=== PATIENT | female | born 1980 | race Caucasian/White ===

== ENCOUNTER 2017-05-28 09:27 | Emergency (ER) | payer SELFPAY ==
[2017-05-28] MEDS ORDERED: Ondansetron 4 MG/2 ML SDV IVPUSH ONE (09:36)
--- NOTE | 2017-05-28 09:37 | EDM.PDOC ---
<Sienna Fields - Last Filed: 05/28/17 14:04> ED HPI GENERAL MEDICAL PROBLEM - General Chief Complaint: Neuro Symptoms/Deficits Stated Complaint: RAPID RESPONSE FROM CLINIC Time Seen by Provider: 05/28/17 09:32 - Related Data Allergies Allergy/AdvReac Type Severity Reaction Status Date / Time No Known Allergies Allergy Verified 05/28/17 09:48 Home Meds: Home Meds Rizatriptan Benzoate [Maxalt] 5 mg PO ASDIRECTED PRN #20 tablet 05/28/17 [Rx] Course - Vital Signs Last Recorded V/S: Last Vital Signs Temp 36.3 C 05/28/17 09:36 Pulse 82 05/28/17 09:36 Resp 16 05/28/17 09:36 BP 143/78 H 05/28/17 09:36 Pulse Ox 97 05/28/17 09:36 - Orders/Labs/Meds Orders: Active Orders 24 hr Category Date Time Status Blood Glucose Check, Bedside [RC] ONETIME Care 05/28/17 09:37 Active EKG Documentation Completion [RC] STAT Care 05/28/17 09:34 Active CALCIUM, IONIZED [REF] Stat Lab 05/28/17 09:35 Ordered Dextrose 5%-0.9% NaCl [Dextrose 5%-Normal Saline] 1,000 Med 05/28/17 09:45 Active ml IV ASDIRECTED Medication Orders Dextrose/Sodium Chloride (Dextrose 5%-Normal Saline) 1,000 mls @ 150 mls/hr IV ASDIRECTED TANK Last Admin: 05/28/17 09:59 Dose: 150 mls/hr Labs: Laboratory Tests 05/28/17 05/28/17 05/28/17 Range/Units 09:40 09:41 10:38 WBC 6.01 (3.98-10.04) K/mm3 RBC 4.29 (3.98-5.22) M/mm3 Hgb 13.5 (11.2-15.7) gm/L Hct 39.0 (34.1-44.9) % MCV 90.9 (79.4-94.8) fl MCH 31.5 (25.6-32.2) pg MCHC 34.6 (32.2-35.5) g/dl RDW Std Deviation 40.9 (36.4-46.3) fL Plt Count 253 (182-369) K/mm3 MPV 10.3 (9.4-12.3) fl Neutrophils % (Manual) 49 (40-60) % Band Neutrophils % 1 (0-10) % Lymphocytes % (Manual) 36 (20-40) % Atypical Lymphs % 0 % Monocytes % (Manual) 9 (2-10) % Eosinophils % (Manual) 5 (0.7-5.8) % Basophils % (Manual) 0 L (0.1-1.2) Platelet Estimate Adequate RBC Morph Comment Normal PT 10.1 (8.0-13.0) SECONDS INR 0.93 Sodium (136-145) mEq/L Potassium (3.5-5.1) mEq/L Chloride (98-107) mEq/L Carbon Dioxide (21-32) mEq/L Anion Gap (5-15) BUN (7-18) mg/dL Creatinine (0.55-1.02) mg/dL Est Cr Clr Drug Dosing Estimated GFR (MDRD) (>60) mL/min BUN/Creatinine Ratio (14-18) Glucose (74-106) mg/dL POC Glucose 190 H (70-105) mg/dL Hemoglobin A1c (4.50-6.20) % Calcium (8.5-10.1) mg/dL Total Bilirubin (0.2-1.0) mg/dL AST (15-37) U/L ALT (14-59) U/L Alkaline Phosphatase (46-116) U/L C-Reactive Protein (<1.0) mg/dL Total Protein (6.4-8.2) g/dl Albumin (3.4-5.0) g/dl Globulin gm/dL Albumin/Globulin Ratio (1-2) Urine Color (Yellow) Urine Appearance (Clear) Urine pH (5.0-8.0) Ur Specific [place] (1.005-1.030) Urine Protein (Negative) Urine Glucose (UA) (Negative) Urine Ketones (Negative) Urine Occult Blood (Negative) Urine Nitrite (Negative) Urine Bilirubin (Negative) Urine Urobilinogen (0.2-1.0) Ur Leukocyte Esterase (Negative) Urine RBC (0-5) /hpf Urine WBC (0-5) /hpf Ur Epithelial Cells (0-5) /hpf Urine Bacteria (FEW) /hpf Urine Mucus (FEW) /hpf Urine Opiates Screen (NEGATIVE) Ur Buprenorphine Scrn (NEGATIVE) Ur Oxycodone Screen (NEGATIVE) Urine Methadone Screen (NEGATIVE) Ur Propoxyphene Screen (NEGATIVE) Ur Barbiturates Screen (NEGATIVE) Ur Tricyclics Screen (NEGATIVE) Ur Phencyclidine Scrn (NEGATIVE) Ur Amphetamine Screen (NEGATIVE) U Methamphetamines Scrn (NEGATIVE) U Benzodiazepines Scrn (NEGATIVE) U Cocaine Metab Screen (NEGATIVE) U Marijuana (THC) Screen (NEGATIVE) Ethyl Alcohol (0.00) gm% 05/28/17 05/28/17 05/28/17 Range/Units 10:38 10:38 12:48 WBC (3.98-10.04) K/mm3 RBC (3.98-5.22) M/mm3 Hgb (11.2-15.7) gm/L Hct (34.1-44.9) % MCV (79.4-94.8) fl MCH (25.6-32.2) pg MCHC (32.2-35.5) g/dl RDW Std Deviation (36.4-46.3) fL Plt Count (182-369) K/mm3 MPV (9.4-12.3) fl Neutrophils % (Manual) (40-60) % Band Neutrophils % (0-10) % Lymphocytes % (Manual) (20-40) % Atypical Lymphs % % Monocytes % (Manual) (2-10) % Eosinophils % (Manual) (0.7-5.8) % Basophils % (Manual) (0.1-1.2) Platelet Estimate RBC Morph Comment PT (8.0-13.0) SECONDS INR Sodium 139 (136-145) mEq/L Potassium 3.7 (3.5-5.1) mEq/L Chloride 106 (98-107) mEq/L Carbon Dioxide 25 (21-32) mEq/L Anion Gap 11.7 (5-15) BUN 9 (7-18) mg/dL Creatinine 0.8 (0.55-1.02) mg/dL Est Cr Clr Drug Dosing TNP Estimated GFR (MDRD) > 60 (>60) mL/min BUN/Creatinine Ratio 11.3 L (14-18) Glucose 216 H (74-106) mg/dL POC Glucose (70-105) mg/dL Hemoglobin A1c 7.60 H (4.50-6.20) % Calcium 8.9 (8.5-10.1) mg/dL Total Bilirubin 0.9 (0.2-1.0) mg/dL AST 64 H (15-37) U/L ALT 99 H (14-59) U/L Alkaline Phosphatase 91 (46-116) U/L C-Reactive Protein 0.7 (<1.0) mg/dL Total Protein 7.0 (6.4-8.2) g/dl Albumin 3.7 (3.4-5.0) g/dl Globulin 3.3 gm/dL Albumin/Globulin Ratio 1.1 (1-2) Urine Color Yellow (Yellow) Urine Appearance Clear (Clear) Urine pH 5.5 (5.0-8.0) Ur Specific [place] 1.015 (1.005-1.030) Urine Protein Negative (Negative) Urine Glucose (UA) Negative (Negative) Urine Ketones Negative (Negative) Urine Occult Blood Negative (Negative) Urine Nitrite Negative (Negative) Urine Bilirubin Negative (Negative) Urine Urobilinogen 0.2 (0.2-1.0) Ur Leukocyte Esterase Negative (Negative) Urine RBC Not seen (0-5) /hpf Urine WBC 0-5 (0-5) /hpf Ur Epithelial Cells 0-5 (0-5) /hpf Urine Bacteria Not seen (FEW) /hpf Urine Mucus Not seen (FEW) /hpf Urine Opiates Screen (NEGATIVE) Ur Buprenorphine Scrn (NEGATIVE) Ur Oxycodone Screen (NEGATIVE) Urine Methadone Screen (NEGATIVE) Ur Propoxyphene Screen (NEGATIVE) Ur Barbiturates Screen (NEGATIVE) Ur Tricyclics Screen (NEGATIVE) Ur Phencyclidine Scrn (NEGATIVE) Ur Amphetamine Screen (NEGATIVE) U Methamphetamines Scrn (NEGATIVE) U Benzodiazepines Scrn (NEGATIVE) U Cocaine Metab Screen (NEGATIVE) U Marijuana (THC) Screen (NEGATIVE) Ethyl Alcohol 0.00 (0.00) gm% 05/28/17 Range/Units 12:48 WBC (3.98-10.04) K/mm3 RBC (3.98-5.22) M/mm3 Hgb (11.2-15.7) gm/L Hct (34.1-44.9) % MCV (79.4-94.8) fl MCH (25.6-32.2) pg MCHC (32.2-35.5) g/dl RDW Std Deviation (36.4-46.3) fL Plt Count (182-369) K/mm3 MPV (9.4-12.3) fl Neutrophils % (Manual) (40-60) % Band Neutrophils % (0-10) % Lymphocytes % (Manual) (20-40) % Atypical Lymphs % % Monocytes % (Manual) (2-10) % Eosinophils % (Manual) (0.7-5.8) % Basophils % (Manual) (0.1-1.2) Platelet Estimate RBC Morph Comment PT (8.0-13.0) SECONDS INR Sodium (136-145) mEq/L Potassium (3.5-5.1) mEq/L Chloride (98-107) mEq/L Carbon Dioxide (21-32) mEq/L Anion Gap (5-15) BUN (7-18) mg/dL Creatinine (0.55-1.02) mg/dL Est Cr Clr Drug Dosing Estimated GFR (MDRD) (>60) mL/min BUN/Creatinine Ratio (14-18) Glucose (74-106) mg/dL POC Glucose (70-105) mg/dL Hemoglobin A1c (4.50-6.20) % Calcium (8.5-10.1) mg/dL Total Bilirubin (0.2-1.0) mg/dL AST (15-37) U/L ALT (14-59) U/L Alkaline Phosphatase (46-116) U/L C-Reactive Protein (<1.0) mg/dL Total Protein (6.4-8.2) g/dl Albumin (3.4-5.0) g/dl Globulin gm/dL Albumin/Globulin Ratio (1-2) Urine Color (Yellow) Urine Appearance (Clear) Urine pH (5.0-8.0) Ur Specific [place] (1.005-1.030) Urine Protein (Negative) Urine Glucose (UA) (Negative) Urine Ketones (Negative) Urine Occult Blood (Negative) Urine Nitrite (Negative) Urine Bilirubin (Negative) Urine Urobilinogen (0.2-1.0) Ur Leukocyte Esterase (Negative) Urine RBC (0-5) /hpf Urine WBC (0-5) /hpf Ur Epithelial Cells (0-5) /hpf Urine Bacteria (FEW) /hpf Urine Mucus (FEW) /hpf Urine Opiates Screen Negative (NEGATIVE) Ur Buprenorphine Scrn Negative (NEGATIVE) Ur Oxycodone Screen Negative (NEGATIVE) Urine Methadone Screen Negative (NEGATIVE) Ur Propoxyphene Screen Negative (NEGATIVE) Ur Barbiturates Screen Negative (NEGATIVE) Ur Tricyclics Screen Negative (NEGATIVE) Ur Phencyclidine Scrn Negative (NEGATIVE) Ur Amphetamine Screen Negative (NEGATIVE) U Methamphetamines Scrn Negative (NEGATIVE) U Benzodiazepines Scrn Negative (NEGATIVE) U Cocaine Metab Screen Negative (NEGATIVE) U Marijuana (THC) Screen Negative (NEGATIVE) Ethyl Alcohol (0.00) gm% Meds: Medications Generic Name Dose Route Start Last Admin Trade Name Freq PRN Reason Stop Dose Admin Dextrose/Sodium Chloride 1,000 mls @ 150 mls/hr 05/28/17 09:45 05/28/17 09:59 Dextrose 5%-Normal Saline IV 150 mls/hr ASDIRECTED TANK Administration Discontinued Medications Generic Name Dose Route Start Last Admin Trade Name Freq PRN Reason Stop Dose Admin Haloperidol Lactate 2.5 mg 05/28/17 11:48 05/28/17 12:06 Haldol IVPUSH 05/28/17 11:49 Not Given ONETIME ONE Haloperidol Lactate 5 mg 05/28/17 12:07 05/28/17 12:16 Haldol IM 05/28/17 12:08 5 mg ONETIME ONE Administration Ketorolac Tromethamine 30 mg 05/28/17 11:48 05/28/17 12:04 Toradol IVPUSH 05/28/17 11:49 30 mg ONETIME ONE Administration Ondansetron HCl 4 mg 05/28/17 09:36 05/28/17 09:59 Zofran IVPUSH 05/28/17 09:37 4 mg ONETIME ONE Administration - Re-Assessments/Exams Free Text/Narrative Re-Assessment/Exam: 05/28/17 11:[address] Hughes with this patient. We've reviewed the CT and labs that are available less far. Patient is now seen one-word answers but will write out longer sentences. Reportedly the patient developed dizziness and said that "her hands are sleeping " 15 days ago. 11 days ago she then developed a headache and numbness to the entire left side of her body. She has not taken anything for the headache. Her friends and family an appointment for her to see the provider today. Reports that she was very nervous about this and anxious. She asked to have this appointment canceled. When she arrives to the clinic she then developed an inability to speak. A rapid response was then called and she was sent over to us for further care. She denies any drug or alcohol use. She states that she has no history of this. Reports that she is a pre-diabetic. This history was obtained from the patient's friend as the patient speaks primarily Surin[place]e. She denies any chest pain, abdominal pain or shortness of breath. Review the patient's chart shows that in April 2015 she was seen in the ER with complaints of a burning sensation in her head and numbness from her head down to the toes on the left side of her body. During that visit ,a CT of her head was done. She was sent to [place] for further management care. The patient was then seen again on June 28, 2015. She was seen in the ER with again similar symptoms. Prior to this presentation she had fallen. Review of that record shows that when she arrived in [place] her symptoms had resolved during her April visit therefore she was sent home that day. During her June 28 visit she was admitted to the hospital. MRI of the brain and MRA were performed. No abnormalities were identified. The patient cannot or will not raise her eyebrows, she will speak in one-word at a time but not in sentences. 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 Dorsiflexion is 5 out of 5 bilaterally. Plantar flexion is 4 out of 5 bilaterally. Patient has no pronator drift. [id number] testing the patient takes her time with but is able to complete. She reports no sensation to the left side of her face, left arm and left leg. This case has been discussed with Dr. Hughes as he initiated the workup for this patient. We both feel that she is having either atypical migraines or possibly a psychiatric illness such as malingering or conversion disorder. At this time we both feel that a CVA is unlikely especially given that she has had similar presentations in the past with negative workups. 05/28/17 13:04 CT of the head without contrast impression per Dr. Ramirez: Impression: 1. Incidental findings. No acute intracranial abnormality is identified on noncontrast head CT study. 05/28/17 14:04 At this point patient is feeling greatly improved. The numbness to the left side of her body has nearly resolved. Her headache has resolved. The nausea has resolved. She feels comfortable going home. This case has been discussed with Dr. Hughes feel we feel this is likely atypical migraine. Asked about medication for migraines. We will try her on some Maxalt have her follow next week with her primary care provider. Departure - Departure Time of Disposition: 14:04 Disposition: Home, Self-Care 01 Condition: Good Clinical Impression: Atypical migraine - Discharge Information Prescriptions: Rizatriptan Benzoate [Maxalt] 5 mg PO ASDIRECTED PRN #20 tablet PRN Reason: Headache Instructions: Migraine Headache Referrals: PCP,None [Primary Care Provider] - Lety Myers PA-C [Physician Goldsmith Apprentice] - Forms: ED Department Discharge Additional Instructions: Go home and rest in a dark quiet room. Make sure you're drinking plenty of fluids. may take the Maxalt 1 tab by mouth at onset of headache. may repeat this every 2 hours, 2 times if needed for additional migraine headache relief. Follow-up with your primary care provider next week for recheck of your symptoms. Please return to the ER if your symptoms change or worsen. - My Orders Last 24 Hours: My Active Orders 05/28/17 09:34 EKG Documentation Completion [RC] STAT 05/28/17 09:35 CALCIUM, IONIZED [REF] Stat 05/28/17 09:37 Blood Glucose Check, Bedside [RC] ONETIME 05/28/17 09:45 Dextrose 5%-0.9% NaCl [Dextrose 5%-Normal Saline] 1,000 ml IV ASDIRECTED - Assessment/Plan Last 24 Hours: My Active Orders 05/28/17 09:34 EKG Documentation Completion [RC] STAT 05/28/17 09:35 CALCIUM, IONIZED [REF] Stat 05/28/17 09:37 Blood Glucose Check, Bedside [RC] ONETIME 05/28/17 09:45 Dextrose 5%-0.9% NaCl [Dextrose 5%-Normal Saline] 1,000 ml IV ASDIRECTED <Ricci Hughes - Last Filed: 05/28/17 15:08> ED HPI GENERAL MEDICAL PROBLEM - General Source of Information: Reports: Patient, Family, Olive Grader History Limitations: Reports: Language Barrier (speaks only [place]inamese) - History of Present Illness INITIAL COMMENTS - FREE TEXT/NARRATIVE: 37-year-old female arrives in the ED after rapid response was called on third floor beside the hospital. Apparently she passed out well in the seated position. She had presented to the clinic due to a severe headache for the last week. It's unclear what there is been any associated nausea and vomiting but it does not sound so. Mohamed she's been able to eat or drink recently.She is not speaking at present and even through alteration worker not able to get her to answer any questions. She will make eye contact. She is alert and I suspicious that she is malingering or very scared. Vital signs are all normal. Neuro exam is grossly normal. She speaks only [place]in[place]e and therefore alteration worker present also using interpreters through cell phone service and patient won't answer any questions . Uncertain if she takes any medications or if she has any allergies at this time. Onset: Today ( Apparently went unresponsive while in the clinic third floor today. Rapid response was called and the patient was brought to the ED. She is of [place]inamese speaking only. Therefore no history could be gleaned from the patient and she refuses or can't answer questions through alteration worker as well today.) Onset Date: 05/28/17 Onset Time: 09:24 Duration: Minutes: Location: Reports: Generalized ( presents supposedly a phasic with implants of left upper extremity weakness numbness and tingling. 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/BYN History: Social & Family History - Tobacco Use Smoking Status *Q: Never Smoker Second Hand Smoke Exposure: No - Recreational Drug Use Recreational Drug Use: No - Living Situation & Occupation Living situation: Reports: Occupation: Unemployed ED ROS GENERAL - Review of Systems Review Of Systems: Unable To Obtain (unable to obtain initially as the patient was nonverbal and apparently only speaks [place]in[place]e.) ED EXAM, NEURO - Physical Exam Exam: See Below Exam Limited By: Other (Language barrier she speaks apparently only [place]e and she will not answer questions even with the alteration worker via computer.) General Appearance: Alert, Anxious Eye Exam: Bilateral Eye: Normal Fundi, Normal Inspection, PERRL Ears: Normal TMs ( No gaze palsy.) Nose: Other Throat/Mouth: Other ( Tongue is dry and coated). No: Normal Lips ( tongue is dry and coated lips are chapped.) Head Exam: Atraumatic, Normocephalic Neck: Normal Inspection, Supple, Non-Tender. No: Carotid Bruit, Lymphadenopathy (L), Lymphadenopathy (R) Respiratory/Chest: No Respiratory Distress, Lungs Clear, Normal Breath Sounds, No Accessory Muscle Use, Chest Non-Tender Cardiovascular: Normal Peripheral Pulses, Regular Rate, Rhythm, No Edema, No Gallop, No Murmur GI/Abdominal: Normal Bowel Sounds, Soft, Non-Tender, No Organomegaly, No Abnormal Bruit, No Mass Neurological: Alert ( She seems to make eye contact but she is nonverbal. Cannot establish or answer any other questions.). No: Babinski ( Not able to perform any neurological tests at this time.) DTR: 1+: Achilles (R), Achilles (L), 2+: Bicep (R), Bicep (L), 3+: Patella (R), Patella (L) Back Exam: Normal Inspection, Full Range of Motion Extremities: Normal Inspection, Normal Range of Motion, Non-Tender, No Pedal Edema, Other ( I could not detect any change in her power and tone in either extremity motor power and tone were normal on assessment in all of her limbs.) Psychiatric: Anxious Skin Exam: Warm, Dry, Intact, Normal Color, No Rash EKG INTERPRETATION EKG Date: 05/28/17 Time: 09:45 Rhythm: NSR Rate (Beats/Min): 78 [place]: Normal P-Wave: Present QRS: Normal ST-T: Normal EKG Interpretation Comments: normal ECG Course - Vital Signs Last Recorded V/S: Last Vital Signs Temp 36.3 C 05/28/17 09:36 Pulse 82 05/28/17 09:36 Resp 16 05/28/17 09:36 BP 143/78 H 05/28/17 09:36 Pulse Ox 97 05/28/17 09:36 - Orders/Labs/Meds Orders: Active Orders 24 hr Category Date Time Status Blood Glucose Check, Bedside [RC] ONETIME Care 05/28/17 09:37 Active EKG Documentation Completion [RC] STAT Care 05/28/17 09:34 Active CALCIUM, IONIZED [REF] Stat Lab 05/28/17 09:35 Ordered Dextrose 5%-0.9% NaCl [Dextrose 5%-Normal Saline] 1,000 Med 05/28/17 09:45 Active ml IV ASDIRECTED Medication Orders Dextrose/Sodium Chloride (Dextrose 5%-Normal Saline) 1,000 mls @ 150 mls/hr IV ASDIRECTED TANK Last Admin: 05/28/17 09:59 Dose: 150 mls/hr Labs: Laboratory Tests 05/28/17 05/28/17 05/28/17 Range/Units 09:40 09:41 10:38 WBC 6.01 (3.98-10.04) K/mm3 RBC 4.29 (3.98-5.22) M/mm3 Hgb 13.5 (11.2-15.7) gm/L Hct 39.0 (34.1-44.9) % MCV 90.9 (79.4-94.8) fl MCH 31.5 (25.6-32.2) pg MCHC 34.6 (32.2-35.5) g/dl RDW Std Deviation 40.9 (36.4-46.3) fL Plt Count 253 (182-369) K/mm3 MPV 10.3 (9.4-12.3) fl Neutrophils % (Manual) 49 (40-60) % Band Neutrophils % 1 (0-10) % Lymphocytes % (Manual) 36 (20-40) % Atypical Lymphs % 0 % Monocytes % (Manual) 9 (2-10) % Eosinophils % (Manual) 5 (0.7-5.8) % Basophils % (Manual) 0 L (0.1-1.2) Platelet Estimate Adequate RBC Morph Comment Normal PT 10.1 (8.0-13.0) SECONDS INR 0.93 Sodium (136-145) mEq/L Potassium (3.5-5.1) mEq/L Chloride (98-107) mEq/L Carbon Dioxide (21-32) mEq/L Anion Gap (5-15) BUN (7-18) mg/dL Creatinine (0.55-1.02) mg/dL Est Cr Clr Drug Dosing Estimated GFR (MDRD) (>60) mL/min BUN/Creatinine Ratio (14-18) Glucose (74-106) mg/dL POC Glucose 190 H (70-105) mg/dL Hemoglobin A1c (4.50-6.20) % Calcium (8.5-10.1) mg/dL Total Bilirubin (0.2-1.0) mg/dL AST (15-37) U/L ALT (14-59) U/L Alkaline Phosphatase (46-116) U/L C-Reactive Protein (<1.0) mg/dL Total Protein (6.4-8.2) g/dl Albumin (3.4-5.0) g/dl Globulin gm/dL Albumin/Globulin Ratio (1-2) Urine Color (Yellow) Urine Appearance (Clear) Urine pH (5.0-8.0) Ur Specific [place] (1.005-1.030) Urine Protein (Negative) Urine Glucose (UA) (Negative) Urine Ketones (Negative) Urine Occult Blood (Negative) Urine Nitrite (Negative) Urine Bilirubin (Negative) Urine Urobilinogen (0.2-1.0) Ur Leukocyte Esterase (Negative) Urine RBC (0-5) /hpf Urine WBC (0-5) /hpf Ur Epithelial Cells (0-5) /hpf Urine Bacteria (FEW) /hpf Urine Mucus (FEW) /hpf Urine Opiates Screen (NEGATIVE) Ur Buprenorphine Scrn (NEGATIVE) Ur Oxycodone Screen (NEGATIVE) Urine Methadone Screen (NEGATIVE) Ur Propoxyphene Screen (NEGATIVE) Ur Barbiturates Screen (NEGATIVE) Ur Tricyclics Screen (NEGATIVE) Ur Phencyclidine Scrn (NEGATIVE) Ur Amphetamine Screen (NEGATIVE) U Methamphetamines Scrn (NEGATIVE) U Benzodiazepines Scrn (NEGATIVE) U Cocaine Metab Screen (NEGATIVE) U Marijuana (THC) Screen (NEGATIVE) Ethyl Alcohol (0.00) gm% 05/28/17 05/28/17 05/28/17 Range/Units 10:38 10:38 12:48 WBC (3.98-10.04) K/mm3 RBC (3.98-5.22) M/mm3 Hgb (11.2-15.7) gm/L Hct (34.1-44.9) % MCV (79.4-94.8) fl MCH (25.6-32.2) pg MCHC (32.2-35.5) g/dl RDW Std Deviation (36.4-46.3) fL Plt Count (182-369) K/mm3 MPV (9.4-12.3) fl Neutrophils % (Manual) (40-60) % Band Neutrophils % (0-10) % Lymphocytes % (Manual) (20-40) % Atypical Lymphs % % Monocytes % (Manual) (2-10) % Eosinophils % (Manual) (0.7-5.8) % Basophils % (Manual) (0.1-1.2) Platelet Estimate RBC Morph Comment PT (8.0-13.0) SECONDS INR Sodium 139 (136-145) mEq/L Potassium 3.7 (3.5-5.1) mEq/L Chloride 106 (98-107) mEq/L Carbon Dioxide 25 (21-32) mEq/L Anion Gap 11.7 (5-15) BUN 9 (7-18) mg/dL Creatinine 0.8 (0.55-1.02) mg/dL Est Cr Clr Drug Dosing TNP Estimated GFR (MDRD) > 60 (>60) mL/min BUN/Creatinine Ratio 11.3 L (14-18) Glucose 216 H (74-106) mg/dL POC Glucose (70-105) mg/dL Hemoglobin A1c 7.60 H (4.50-6.20) % Calcium 8.9 (8.5-10.1) mg/dL Total Bilirubin 0.9 (0.2-1.0) mg/dL AST 64 H (15-37) U/L ALT 99 H (14-59) U/L Alkaline Phosphatase 91 (46-116) U/L C-Reactive Protein 0.7 (<1.0) mg/dL Total Protein 7.0 (6.4-8.2) g/dl Albumin 3.7 (3.4-5.0) g/dl Globulin 3.3 gm/dL Albumin/Globulin Ratio 1.1 (1-2) Urine Color Yellow (Yellow) Urine Appearance Clear (Clear) Urine pH 5.5 (5.0-8.0) Ur Specific [place] 1.015 (1.005-1.030) Urine Protein Negative (Negative) Urine Glucose (UA) Negative (Negative) Urine Ketones Negative (Negative) Urine Occult Blood Negative (Negative) Urine Nitrite Negative (Negative) Urine Bilirubin Negative (Negative) Urine Urobilinogen 0.2 (0.2-1.0) Ur Leukocyte Esterase Negative (Negative) Urine RBC Not seen (0-5) /hpf Urine WBC 0-5 (0-5) /hpf Ur Epithelial Cells 0-5 (0-5) /hpf Urine Bacteria Not seen (FEW) /hpf Urine Mucus Not seen (FEW) /hpf Urine Opiates Screen (NEGATIVE) Ur Buprenorphine Scrn (NEGATIVE) Ur Oxycodone Screen (NEGATIVE) Urine Methadone Screen (NEGATIVE) Ur Propoxyphene Screen (NEGATIVE) Ur Barbiturates Screen (NEGATIVE) Ur Tricyclics Screen (NEGATIVE) Ur Phencyclidine Scrn (NEGATIVE) Ur Amphetamine Screen (NEGATIVE) U Methamphetamines Scrn (NEGATIVE) U Benzodiazepines Scrn (NEGATIVE) U Cocaine Metab Screen (NEGATIVE) U Marijuana (THC) Screen (NEGATIVE) Ethyl Alcohol 0.00 (0.00) gm% 05/28/17 Range/Units 12:48 WBC (3.98-10.04) K/mm3 RBC (3.98-5.22) M/mm3 Hgb (11.2-15.7) gm/L Hct (34.1-44.9) % MCV (79.4-94.8) fl MCH (25.6-32.2) pg MCHC (32.2-35.5) g/dl RDW Std Deviation (36.4-46.3) fL Plt Count (182-369) K/mm3 MPV (9.4-12.3) fl Neutrophils % (Manual) (40-60) % Band Neutrophils % (0-10) % Lymphocytes % (Manual) (20-40) % Atypical Lymphs % % Monocytes % (Manual) (2-10) % Eosinophils % (Manual) (0.7-5.8) % Basophils % (Manual) (0.1-1.2) Platelet Estimate RBC Morph Comment PT (8.0-13.0) SECONDS INR Sodium (136-145) mEq/L Potassium (3.5-5.1) mEq/L Chloride (98-107) mEq/L Carbon Dioxide (21-32) mEq/L Anion Gap (5-15) BUN (7-18) mg/dL Creatinine (0.55-1.02) mg/dL Est Cr Clr Drug Dosing Estimated GFR (MDRD) (>60) mL/min BUN/Creatinine Ratio (14-18) Glucose (74-106) mg/dL POC Glucose (70-105) mg/dL Hemoglobin A1c (4.50-6.20) % Calcium (8.5-10.1) mg/dL Total Bilirubin (0.2-1.0) mg/dL AST (15-37) U/L ALT (14-59) U/L Alkaline Phosphatase (46-116) U/L C-Reactive Protein (<1.0) mg/dL Total Protein (6.4-8.2) g/dl Albumin (3.4-5.0) g/dl Globulin gm/dL Albumin/Globulin Ratio (1-2) Urine Color (Yellow) Urine Appearance (Clear) Urine pH (5.0-8.0) Ur Specific [place] (1.005-1.030) Urine Protein (Negative) Urine Glucose (UA) (Negative) Urine Ketones (Negative) Urine Occult Blood (Negative) Urine Nitrite (Negative) Urine Bilirubin (Negative) Urine Urobilinogen (0.2-1.0) Ur Leukocyte Esterase (Negative) Urine RBC (0-5) /hpf Urine WBC (0-5) /hpf Ur Epithelial Cells (0-5) /hpf Urine Bacteria (FEW) /hpf Urine Mucus (FEW) /hpf Urine Opiates Screen Negative (NEGATIVE) Ur Buprenorphine Scrn Negative (NEGATIVE) Ur Oxycodone Screen Negative (NEGATIVE) Urine Methadone Screen Negative (NEGATIVE) Ur Propoxyphene Screen Negative (NEGATIVE) Ur Barbiturates Screen Negative (NEGATIVE) Ur Tricyclics Screen Negative (NEGATIVE) Ur Phencyclidine Scrn Negative (NEGATIVE) Ur Amphetamine Screen Negative (NEGATIVE) U Methamphetamines Scrn Negative (NEGATIVE) U Benzodiazepines Scrn Negative (NEGATIVE) U Cocaine Metab Screen Negative (NEGATIVE) U Marijuana (THC) Screen Negative (NEGATIVE) Ethyl Alcohol (0.00) gm% Meds: Medications Generic Name Dose Route Start Last Admin Trade Name Freq PRN Reason Stop Dose Admin Dextrose/Sodium Chloride 1,000 mls @ 150 mls/hr 05/28/17 09:45 05/28/17 09:59 Dextrose 5%-Normal Saline IV 150 mls/hr ASDIRECTED TANK Administration Discontinued Medications Generic Name Dose Route Start Last Admin Trade Name Freq PRN Reason Stop Dose Admin Haloperidol Lactate 2.5 mg 05/28/17 11:48 05/28/17 12:06 Haldol IVPUSH 05/28/17 11:49 Not Given ONETIME ONE Haloperidol Lactate 5 mg 05/28/17 12:07 05/28/17 12:16 Haldol IM 05/28/17 12:08 5 mg ONETIME ONE Administration Ketorolac Tromethamine 30 mg 05/28/17 11:48 05/28/17 12:04 Toradol IVPUSH 05/28/17 11:49 30 mg ONETIME ONE Administration Ondansetron HCl 4 mg 05/28/17 09:36 05/28/17 09:59 Zofran IVPUSH 05/28/17 09:37 4 mg ONETIME ONE Administration - Radiology Interpretation Free Text/Narrative:: 37-year-old female [place] origin who only speaks Surinamese presents to the ED per caught after collapse in the third floor of the medical clinic. Apparently she had went unresponsive well in the seated position this morning. She attended the clinic because of a bad headache for the last week apparently. Unclear if there is no nausea vomiting or what her oral intake has been like. Apparently someone identified that she seemed to have left-sided arm weakness and at present she will not answer any questions even through interpreting device. My impression is she's make eye contact and is not showing any signs of unresponsiveness. Vital signs are all normal. Heart is sinus bradycardia at 60/ m lungs are clear. Neuro exam was grossly normal with no evidence of upper motor neuron lesion identified. Reflexes in the knees are 3+ and symmetrical. Motor power and tone. To be normal. Patient coursed can't understand Hebrew therefore not able to comply with neuro exam.Plan CT of the head will be done first. ECG chest x-ray and routine labs to follow. Urinalysis and urine drug screen and blood alcohol levels to be checked. - My Orders Last 24 Hours: My Active Orders 05/28/17 09:34 EKG Documentation Completion [RC] STAT 05/28/17 09:35 CALCIUM, IONIZED [REF] Stat 05/28/17 09:37 Blood Glucose Check, Bedside [RC] ONETIME 05/28/17 09:45 Dextrose 5%-0.9% NaCl [Dextrose 5%-Normal Saline] 1,000 ml IV ASDIRECTED - Assessment/Plan Last 24 Hours: My Active Orders 05/28/17 09:34 EKG Documentation Completion [RC] STAT 05/28/17 09:35 CALCIUM, IONIZED [REF] Stat 05/28/17 09:37 Blood Glucose Check, Bedside [RC] ONETIME 05/28/17 09:45 Dextrose 5%-0.9% NaCl [Dextrose 5%-Normal Saline] 1,000 ml IV ASDIRECTED
[2017-05-28] MEDS ORDERED: Dextrose 5%-0.9% NaCl 1,000 ML IV SCH (09:45)
[2017-05-28] MEDS ORDERED: Haloperidol Lactate 5 MG/ML SDV IVPUSH ONE (11:48)
[2017-05-28] MEDS ORDERED: Ketorolac 30 MG/ML SDV IVPUSH ONE (11:48)
[2017-05-28] MEDS ORDERED: Haloperidol Lactate 5 MG/ML SDV IM ONE (12:07)
--- NOTE | 2017-05-28 14:10 | CR ---
Chest: Portable view of the chest was obtained. Comparison: Previous chest x-ray of 05/17/15. Heart size and mediastinum are normal. Lungs are clear. Bony structures are grossly intact. Impression: 1. Nothing acute is identified on portable chest x-ray. Diagnostic code #1
--- NOTE | 2017-05-28 14:10 | CT ---
Addendum: Voice recognition error identified within the last sentence of the body of the report stating "medical small cortical calcification is seen which is stable". This should read as follows: Minimal small cortical calcification is seen which is stable. MRI comparison dates should be 06/29/15. --- Addendum1 above dictated on [05/28/2017 13:52] by [Oanh Ramirez, Avni Singh] --- --- Addendum1 above signed on [05/28/2017 14:07] by [Oanh Ramirez, Avni Singh] --- --- Original report below dictated on [05/28/2017 09:59] by [Oanh Ramirez, Avni Singh] --- --- Original report below signed on [05/28/2017 10:01] by [Oanh Ramirez, Avni Singh] --- Head CT Technique: Multiple axial sections through the brain were obtained. Intravenous contrast was not utilized. Comparison: Previous head CT study of 06/28/15 and MRI brain of 06 29 15. Findings: Ventricles along with basal cisterns and sulci over the convexities are within normal limits for the patient's age. No abnormal parenchymal densities are seen. No evidence of intracranial hemorrhage. No midline shift or mass effect is seen. Bone window settings were reviewed which shows minimal mucosal thickening within the left maxillary sinus which is incidental. No acute calvarial abnormality is appreciated. Medical small cortical calcification is seen which is stable. Impression: 1. Incidental findings. No acute intracranial abnormality is identified on noncontrast head CT study. Diagnostic code #2 --- Addendum1 signed ---
[2017-05-28 15:27] VITALS: BP 132/80
== END 2017-05-28 14:35 | disposition home or self-care (01) ==
LOC: JD.ED 09:27
DX: G43.909 Migraine, unspecified, not intractable, without status migrainosus (principal); E78.00 Pure hypercholesterolemia, unspecified
CPT/HCPCS: 36415; 70450; 71010; 80053; 80306; 81001; 82962; 83036; 85025; 85610; 86140; 93005; 96361; 96372; 96374; 96375; 99285; G0480; J1630; J1885; J2405; J7042

== ENCOUNTER 2017-06-07 10:51 | Emergency (ER) | payer OTHER, SELFPAY ==
[2017-06-07] MEDS ORDERED: Ketorolac 30 MG/ML SDV IVPUSH ONE (11:46)
[2017-06-07] MEDS ORDERED: Haloperidol Lactate 5 MG/ML SDV IVPUSH ONE (11:48)
--- NOTE | 2017-06-07 12:18 | EDM.PDOC ---
ED HPI GENERAL MEDICAL PROBLEM - General Chief Complaint: Allergic Reaction Stated Complaint: [facility] Time Seen by Provider: 06/07/17 11:54 Source of Information: Reports: EMS, Family History Limitations: Reports: Language Barrier - History of Present Illness INITIAL COMMENTS - FREE TEXT/NARRATIVE: 37-year-old female arrives via [facility] for evaluation and treatment of shortness of breath. History is obtained from a friend and EMS as the patient speaks primarily Danish. Per EMS report they were called for someone not being able to breathe. They were also told that she had a rash all over her chest, face and antecubitals. Upon arrival they found a woman who was alert and breathing on her own. She was given 50 of Benadryl and transported to the emergency room. EMS report rash has since completely resolved. The friend who is translating for the patient reports that she was started on 3 new medications yesterday. She was started on Zofran, metformin and Zoloft. She did not take any Zofran last night. Of note, she was also started on Maxalt by myself on 05/28/17. She has taken this without any problem and did not take any of this last night. Reports that she took the metformin the Zoloft last night; at 1700 and 2015 respectively. This morning she developed shortness of breath and was unable to breathe. No current shortness of breath. She reports chest pain described as "a poke". No current rash appreciated. Denies any vomiting or any recent illness. She is complaining currently complaining of a headache, dizziness and describes her left side as "sleeping ". Of note, she was seen in the ER on 05/28/17. Please see that record for complete details. She was seen for a headache and left-sided numbness. She has had this on several other occasions. Workup has been normal for a CVA. Friend who is translating for the patient states that they did not appreciate any rash and this was reported by EMS. Onset: Today - Related Data Allergies Allergy/AdvReac Type Severity Reaction Status Date / Time No Known Allergies Allergy Verified 06/07/17 11:00 Home Meds: Home Meds Rizatriptan Benzoate [Maxalt] 5 mg PO ASDIRECTED PRN #20 tablet 05/28/17 [Rx] Ondansetron [Zofran ODT] 4 mg PO ASDIRECTED PRN 06/07/17 [History] Sertraline [Zoloft] 50 mg PO QPM 06/07/17 [History] metFORMIN [Glucophage XR] 500 mg PO BID 06/07/17 [History] Past Medical History - Past Health History Medical/Surgical History: Denies Medical/Surgical History Cardiovascular History: Reports: High Cholesterol [employer] History: Reports: Other OB/BYN History: - Past Surgical History GI Surgical History: Reports: Appendectomy Female Surgical History: Reports: D&C Social & Family History - Tobacco Use Smoking Status *Q: Never Smoker Second Hand Smoke Exposure: No - Caffeine Use Caffeine Use: Reports: None - Recreational Drug Use Recreational Drug Use: No - Living Situation & Occupation Living situation: Reports: Occupation: Unemployed ED ROS ALLERGIC REACTION - Review of Systems Review Of Systems: See Below Respiratory: Reports: Shortness of Breath (none currently; resolved prior to arrival) Cardiovascular: Reports: Chest Pain (described as a "poke") GI/Abdominal: Denies: Vomiting Skin: Reports: Rash (to the face, chest and antecubitals has since resolved) Neurological: Reports: Dizziness, Headache, Numbness (left sided) ED EXAM GENERAL NO PERIP PULSE - Physical Exam Exam: See Below Exam Limited By: Language Barrier General Appearance: Alert, WD/WN, No Apparent Distress Eye Exam: Bilateral Eye: PERRL Ears: Normal External Exam Nose: Normal Inspection Throat/Mouth: Normal Inspection, Normal Lips, Normal Teeth, Normal Gums, Normal Oropharynx, Normal Voice, No Airway Compromise, Other (no uvula swelling) Respiratory/Chest: No Respiratory Distress, Lungs Clear, Normal Breath Sounds, No Accessory Muscle Use Cardiovascular: Normal Peripheral Pulses, Regular Rate, Rhythm, No Murmur GI/Abdominal: Soft, Non-Tender Neurological: Alert, Normal Cognition Psychiatric: Flat Affect Skin Exam: Warm, Dry, No Rash Course - Vital Signs Last Recorded V/S: Last Vital Signs Temp 36.9 C 06/07/17 10:54 Pulse 75 06/07/17 13:42 Resp 12 06/07/17 13:42 BP 108/70 06/07/17 13:42 Pulse Ox 100 06/07/17 13:42 - Orders/Labs/Meds Orders: Active Orders 24 hr Category Date Time Status Blood Glucose Check, Bedside [RC] ONETIME Care 06/07/17 11:46 Active Cardiac Monitoring [RC] . DIRECTED Care 06/07/17 11:46 Active Chest 1V Frontal [CR] Stat Exams 06/07/17 11:46 Taken Labs: Laboratory Tests 06/07/17 06/07/17 06/07/17 Range/Units 12:04 12:10 12:33 WBC 6.67 (3.98-10.04) K/mm3 RBC 4.29 (3.98-5.22) M/mm3 Hgb 13.5 (11.2-15.7) gm/L Hct 39.2 (34.1-44.9) % MCV 91.4 (79.4-94.8) fl MCH 31.5 (25.6-32.2) pg MCHC 34.4 (32.2-35.5) g/dl RDW Std Deviation 40.7 (36.4-46.3) fL Plt Count 252 (182-369) K/mm3 MPV 9.9 (9.4-12.3) fl Neut % (Auto) 65.8 (34.0-71.1) % Lymph % (Auto) 22.9 (19.3-51.7) % [place] % (Auto) 9.9 (4.7-12.5) % Eos % (Auto) 1.0 (0.7-5.8) Baso % (Auto) 0.1 (0.1-1.2) % Neut # (Auto) 4.38 (1.56-6.13) K/mm3 Lymph # (Auto) 1.53 (1.18-3.74) K/mm3 [place] # (Auto) 0.66 H (0.24-0.36) K/mm3 Eos # (Auto) 0.07 (0.04-0.36) K/mm3 Baso # (Auto) 0.01 (0.01-0.08) K/mm3 Sodium (136-145) mEq/L Potassium (3.5-5.1) mEq/L Chloride (98-107) mEq/L Carbon Dioxide (21-32) mEq/L Anion Gap (5-15) BUN (7-18) mg/dL Creatinine (0.55-1.02) mg/dL Est Cr Clr Drug Dosing mL/min Estimated GFR (MDRD) (>60) mL/min BUN/Creatinine Ratio (14-18) Glucose (74-106) mg/dL POC Glucose 170 H (70-105) mg/dL Calcium (8.5-10.1) mg/dL Total Bilirubin (0.2-1.0) mg/dL AST (15-37) U/L ALT (14-59) U/L Alkaline Phosphatase (46-116) U/L Total Protein (6.4-8.2) g/dl Albumin (3.4-5.0) g/dl Globulin gm/dL Albumin/Globulin Ratio (1-2) Urine Color Taryn H (Yellow) Urine Appearance Clear (Clear) Urine pH 6.5 (5.0-8.0) Ur Specific [place] 1.025 (1.005-1.030) Urine Protein 2+ H (Negative) Urine Glucose (UA) Negative (Negative) Urine Ketones Trace H (Negative) Urine Occult Blood Negative (Negative) Urine Nitrite Negative (Negative) Urine Bilirubin Negative (Negative) Urine Urobilinogen 0.2 (0.2-1.0) Ur Leukocyte Esterase Trace H (Negative) Urine RBC Not seen (0-5) /hpf Urine WBC 0-5 (0-5) /hpf Ur Epithelial Cells 0-5 (0-5) /hpf Urine Bacteria Few (FEW) /hpf Urine Mucus Many H (FEW) /hpf 06/07/17 Range/Units 12:33 WBC (3.98-10.04) K/mm3 RBC (3.98-5.22) M/mm3 Hgb (11.2-15.7) gm/L Hct (34.1-44.9) % MCV (79.4-94.8) fl MCH (25.6-32.2) pg MCHC (32.2-35.5) g/dl RDW Std Deviation (36.4-46.3) fL Plt Count (182-369) K/mm3 MPV (9.4-12.3) fl Neut % (Auto) (34.0-71.1) % Lymph % (Auto) (19.3-51.7) % [place] % (Auto) (4.7-12.5) % Eos % (Auto) (0.7-5.8) Baso % (Auto) (0.1-1.2) % Neut # (Auto) (1.56-6.13) K/mm3 Lymph # (Auto) (1.18-3.74) K/mm3 [place] # (Auto) (0.24-0.36) K/mm3 Eos # (Auto) (0.04-0.36) K/mm3 Baso # (Auto) (0.01-0.08) K/mm3 Sodium 140 (136-145) mEq/L Potassium 3.8 (3.5-5.1) mEq/L Chloride 105 (98-107) mEq/L Carbon Dioxide 25 (21-32) mEq/L Anion Gap 13.8 (5-15) BUN 11 (7-18) mg/dL Creatinine 0.7 (0.55-1.02) mg/dL Est Cr Clr Drug Dosing 86.18 mL/min Estimated GFR (MDRD) > 60 (>60) mL/min BUN/Creatinine Ratio 15.7 (14-18) Glucose 170 H (74-106) mg/dL POC Glucose (70-105) mg/dL Calcium 9.1 (8.5-10.1) mg/dL Total Bilirubin 0.8 (0.2-1.0) mg/dL AST 88 H (15-37) U/L ALT 131 H (14-59) U/L Alkaline Phosphatase 86 (46-116) U/L Total Protein 7.3 (6.4-8.2) g/dl Albumin 3.5 (3.4-5.0) g/dl Globulin 3.8 gm/dL Albumin/Globulin Ratio 0.9 L (1-2) Urine Color (Yellow) Urine Appearance (Clear) Urine pH (5.0-8.0) Ur Specific [place] (1.005-1.030) Urine Protein (Negative) Urine Glucose (UA) (Negative) Urine Ketones (Negative) Urine Occult Blood (Negative) Urine Nitrite (Negative) Urine Bilirubin (Negative) Urine Urobilinogen (0.2-1.0) Ur Leukocyte Esterase (Negative) Urine RBC (0-5) /hpf Urine WBC (0-5) /hpf Ur Epithelial Cells (0-5) /hpf Urine Bacteria (FEW) /hpf Urine Mucus (FEW) /hpf Meds: Medications Discontinued Medications Generic Name Dose Route Start Last Admin Trade Name Freq PRN Reason Stop Dose Admin Haloperidol Lactate 2.5 mg 06/07/17 11:48 06/07/17 11:53 Haldol IVPUSH 06/07/17 11:49 2.5 mg ONETIME ONE Administration Ketorolac Tromethamine 30 mg 06/07/17 11:46 06/07/17 11:52 Toradol IVPUSH 06/07/17 11:47 30 mg ONETIME ONE Administration - Radiology Interpretation Free Text/Narrative:: chest xray shows no acute intrathorcic process - Re-Assessments/Exams Free Text/Narrative Re-Assessment/Exam: 06/07/17 13:30 I reviewed the labs and imaging results with the patient and her . I feel it is unlikely allergic reaction. I feel like this is more likely anxiety or panic attack. Given that she was just certain on the sertraline yesterday will not add any medications to her regime and allow the sertraline to reach a therapeutic level. Follow-up with her primary care provider this week. Discharge instructions his document. Departure - Departure Time of Disposition: 13:31 Disposition: Home, Self-Care 01 Condition: Good Clinical Impression: Anxiety - Discharge Information Instructions: Panic Attacks, [id number] Referrals: Lety Myers PA-C [Primary Care Provider] - Forms: ED Department Discharge Additional Instructions: Continue with your current plan of care. continue on your medications as prescribed. may take [id number] Benadryl as needed for rash and hives. Follow-up with your primary care provider this week for recheck of your symptoms and to recheck on your elevated liver enzymes. Please return to the ER if your symptoms change or worsen. - My Orders Last 24 Hours: My Active Orders 06/07/17 11:46 Blood Glucose Check, Bedside [RC] ONETIME Cardiac Monitoring [RC] . DIRECTED Chest 1V Frontal [CR] Stat - Assessment/Plan Last 24 Hours: My Active Orders 06/07/17 11:46 Blood Glucose Check, Bedside [RC] ONETIME Cardiac Monitoring [RC] . DIRECTED Chest 1V Frontal [CR] Stat
[2017-06-07 13:47] VITALS: BP 108/70
--- NOTE | 2017-06-09 08:58 | CR ---
Chest: Portable view of the chest was obtained. Comparison: Previous chest x-ray of 05/28/17. Heart size and mediastinum are within normal limits. Slight atelectasis is seen within both lung bases secondary to less than optimal inspiratory effort. Lungs otherwise are clear. Bony structures are grossly intact. Impression: 1. Study obtained in slight expiration. This causes some increased atelectasis within both lung bases. Nothing acute is suspected. Diagnostic code #2
== END 2017-06-07 13:47 | disposition home or self-care (01) ==
LOC: JD.ED 10:51 → SUPCPDRO 10:51 → JD.ED 13:47
DX: F41.9 Anxiety disorder, unspecified (principal); E78.00 Pure hypercholesterolemia, unspecified; Z79.84 Long term (current) use of oral hypoglycemic drugs; Z90.49 Acquired absence of other specified parts of digestive tract
CPT/HCPCS: 36415; 71010; 80053; 81001; 82962; 85025; 96374; 96375; 99284; J1630; J1885; 99282

== ENCOUNTER 2018-04-09 22:52 | Emergency (ER) | payer SELFPAY ==
[2018-04-09] MEDS ORDERED: Sodium Chloride 0.9% 10 ML Syringe FLUSH PRN (23:23)
--- NOTE | 2018-04-10 03:30 | EDM.PDOC ---
ED HPI GENERAL MEDICAL PROBLEM - General Chief Complaint: Chest Pain Stated Complaint: [facility] Time Seen by Provider: 04/10/18 02:05 Source of Information: Reports: Patient History Limitations: Reports: Language Barrier (Liberian-speaking only. 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 She then had cough- associated emesis, and noted that there was some blood in the emesis. Her cough continued, and she developed a whole-body burning sensation. Here in the ED, she is no longer coughing, but continues to have a burning sensation felt throughout her body. No prior similar symptoms. She is hemodynamically stable, afebrile, saturating 99-100% on room air. The patient has a history of depression and anxiety, for which she takes Zoloft. The patient's PCP is Lety Myers. 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: Psychiatric History: Reports: Anxiety, Depression Endocrine/Metabolic History: Reports: Diabetes, Type II - Past Surgical History Female Surgical History: Reports: D&C, Tubal Ligation Social & Family History - Family History Family Medical History: Noncontributory - Tobacco Use Smoking Status *Q: Never Smoker - Caffeine Use Caffeine Use: Reports: Coffee - Alcohol Use Alcohol Use History: No - Recreational Drug Use Recreational Drug Use: No - Living Situation & Occupation Living situation: Reports: , with Spouse, with Family (1 daughter) Occupation: Unemployed ED ROS GENERAL - Review of Systems Review Of Systems: ROS reveals no pertinent complaints other than HPI. ED EXAM, GENERAL - Physical Exam Exam: See Below Exam Limited By: No Limitations General Appearance: Alert, WD/WN, No Apparent Distress, Anxious Eye Exam: Bilateral Eye: EOMI, Normal Inspection Ears: Normal External Exam, Hearing Grossly Normal Nose: Normal Inspection, No Blood Throat/Mouth: Normal Inspection, Normal Lips, Normal Voice, No Airway Compromise Head: Atraumatic, Normocephalic Neck: Normal Inspection, Full Range of Motion Respiratory/Chest: No Respiratory Distress, Lungs Clear, Normal Breath Sounds, No Accessory Muscle Use Cardiovascular: Normal Peripheral Pulses, Regular Rate, Rhythm, No Gallop, No JVD, No Murmur, No Rub Peripheral Pulses: 4+: Radial (L), Radial (R) GI/Abdominal: Normal Bowel Sounds, Soft, Non-Tender, No Organomegaly, No Distention, No Abnormal Bruit, No Mass (Female) Exam: Deferred Rectal (Female) Exam: Deferred Back Exam: Normal Inspection, Full Range of Motion, NT Extremities: Normal Inspection, Normal Range of Motion, No Pedal Edema, Normal Capillary Refill Neurological: Alert, Oriented, Normal Cognition, No Motor/Sensory Deficits Psychiatric: Anxious Skin Exam: Warm, Dry, Intact, Normal Color, No Rash EKG INTERPRETATION EKG Date: 04/09/18 Time: 23:09 Rhythm: NSR Rate (Beats/Min): 76 [place] [address]: Normal P-Wave: Present QRS: Normal ST-T: Normal QT: Normal Comparison: No Change (05/28/2017) Course - Vital Signs Last Recorded V/S: Last Vital Signs Temp 36.8 C 04/10/18 07:00 Pulse 85 04/10/18 07:00 Resp 20 04/10/18 07:00 BP 129/75 04/10/18 07:00 Pulse Ox 98 04/10/18 07:00 - Orders/Labs/Meds Labs: Laboratory Tests 04/09/18 04/09/18 04/10/18 Range/Units 23:30 23:30 03:55 WBC 10.30 H (3.98-10.04) K/mm3 RBC 4.29 (3.98-5.22) M/mm3 Hgb 12.7 (11.2-15.7) gm/L Hct 38.4 (34.1-44.9) % MCV 89.5 (79.4-94.8) fl MCH 29.6 (25.6-32.2) pg MCHC 33.1 (32.2-35.5) g/dl RDW Std Deviation 42.5 (36.4-46.3) fL Plt Count 264 (182-369) K/mm3 MPV 10.2 (9.4-12.3) fl Neutrophils % (Manual) 63 H (40-60) % Band Neutrophils % 0 (0-10) % Lymphocytes % (Manual) 29 (20-40) % Atypical Lymphs % 5 % Monocytes % (Manual) 2 (2-10) % Eosinophils % (Manual) 1 (0.7-5.8) % Basophils % (Manual) 0 L (0.1-1.2) Platelet Estimate Adequate Plt Morphology Comment Normal RBC Morph Comment Normal Puncture Site ABG pH (7.35-7.45) ABG pCO2 (35.0-45.0) mmHg ABG pO2 (80.0-100.0) mmHg ABG HCO3 (22.0-26.0) meq/L ABG O2 Saturation (96.0-97.0) % ABG Base Excess (-2-2.0) Donato Test A-a Gradient mmHg O2 Delivery Device Oxygen Flow Rate FiO2 (21.00-100.00) % Sodium 139 (136-145) mEq/L Potassium 3.5 (3.5-5.1) mEq/L Chloride 106 (98-107) mEq/L Carbon Dioxide 24 (21-32) mEq/L Anion Gap 12.5 (5-15) BUN 11 (7-18) mg/dL Creatinine 0.9 (0.55-1.02) mg/dL Est Cr Clr Drug Dosing 75.52 mL/min Estimated GFR (MDRD) > 60 (>60) mL/min BUN/Creatinine Ratio 12.2 L (14-18) Glucose 112 H (74-106) mg/dL Calcium 8.6 (8.5-10.1) mg/dL Total Bilirubin 0.5 (0.2-1.0) mg/dL AST 21 (15-37) U/L ALT 41 (14-59) U/L Alkaline Phosphatase 71 (46-116) U/L Troponin I < 0.017 (0.00-0.056) ng/mL Total Protein 7.3 (6.4-8.2) g/dl Albumin 3.6 (3.4-5.0) g/dl Globulin 3.7 gm/dL Albumin/Globulin Ratio 1.0 (1-2) /13/18 Range/Units 04:30 WBC (3.98-10.04) K/mm3 RBC (3.98-5.22) M/mm3 Hgb (11.2-15.7) gm/L Hct (34.1-44.9) % MCV (79.4-94.8) fl MCH (25.6-32.2) pg MCHC (32.2-35.5) g/dl RDW Std Deviation (36.4-46.3) fL Plt Count (182-369) K/mm3 MPV (9.4-12.3) fl Neutrophils % (Manual) (40-60) % Band Neutrophils % (0-10) % Lymphocytes % (Manual) (20-40) % Atypical Lymphs % % Monocytes % (Manual) (2-10) % Eosinophils % (Manual) (0.7-5.8) % Basophils % (Manual) (0.1-1.2) Platelet Estimate Plt Morphology Comment RBC Morph Comment Puncture Site Lt radial ABG pH 7.40 (7.35-7.45) ABG pCO2 35.4 (35.0-45.0) mmHg ABG pO2 83.0 (80.0-100.0) mmHg ABG HCO3 21.4 L (22.0-26.0) meq/L ABG O2 Saturation 97.1 H (96.0-97.0) % ABG Base Excess -2.3 L (-2-2.0) Donato Test Positive A-a Gradient 7 mmHg O2 Delivery Device Room air Oxygen Flow Rate 0.0 FiO2 21.00 (21.00-100.00) % Sodium (136-145) mEq/L Potassium (3.5-5.1) mEq/L Chloride (98-107) mEq/L Carbon Dioxide (21-32) mEq/L Anion Gap (5-15) BUN (7-18) mg/dL Creatinine (0.55-1.02) mg/dL Est Cr Clr Drug Dosing mL/min Estimated GFR (MDRD) (>60) mL/min BUN/Creatinine Ratio (14-18) Glucose (74-106) mg/dL Calcium (8.5-10.1) mg/dL Total Bilirubin (0.2-1.0) mg/dL AST (15-37) U/L ALT (14-59) U/L Alkaline Phosphatase (46-116) U/L Troponin I (0.00-0.056) ng/mL Total Protein (6.4-8.2) g/dl Albumin (3.4-5.0) g/dl Globulin gm/dL Albumin/Globulin Ratio (1-2) Meds: Medications Discontinued Medications Generic Name Dose Route Start Last Admin Trade Name Andreq PRN Reason Stop Dose Admin Lorazepam 1 mg 04/10/18 03:33 04/10/18 03:41 Ativan IVPUSH 04/10/18 03:34 1 mg ONETIME STA Administration Sodium Chloride 10 ml 04/09/18 23:23 04/09/18 23:47 Saline Flush FLUSH 10 ml ASDIRECTED PRN Administration Keep Vein Open - Re-Assessments/Exams Free Text/Narrative Re-Assessment/Exam: 04/10/18 03:31 2-view chest radiograph appears to be grossly normal. Cardiac silhouette is within normal limits. No pulmonary vascular congestion. No pleural effusions. No focal infiltrate. No pneumothorax. Formal read per the Radiologist pending. 04/10/18 06:49 Test results discussed with the patient via a arts and sciences dean. Today's workup is unremarkable. I suspect that the hematemesis that the patient had earlier is due to a Velia-Sandra tear. She has not had any additional vomiting. I suspect that her whole body burning sensation is hyperventilation syndrome, due to anxiety. I treated her with Ativan earlier, and she stated that she feels much better now. I believe she can safely be discharged home. Departure - Departure Time of Disposition: 06:51 Disposition: Home, Self-Care 01 Condition: Good Clinical Impression: Velia-Sandra tear, Hyperventilation syndrome, Anxiety - Discharge Information *PRESCRIPTION DRUG MONITORING PROGRAM REVIEWED*: Not Applicable *COPY OF PRESCRIPTION DRUG MONITORING REPORT IN PATIENT IVONNE: Not Applicable Instructions: Generalized Anxiety Disorder, Adult, Velia-Sandra Syndrome, Hyperventilation, Panic Attack, [id number] Referrals: PCP,None [Primary Care Provider] - Lety Myers PA-C [Physician Build Technician] - Forms: ED Department Discharge Additional Instructions: You were seen in the emergency room for vomiting blood, coughing, and whole- body burning sensation. Workup in the ER included blood work, a chest x-ray, and an ECG. Your entire workup was unremarkable. You have not had a heart attack. You do not have pneumonia. The cause of the blood in your vomit is MOST LIKELY due to a Velia-Sandra tear , a small tear at the top of the stomach when you vomited. It is common, and not dangerous. The cause of your whole-body burning sensation is MOST LIKELY due to hyperventilation due to anxiety. Follow-up with your PCP, Lety Myers, at the next available appointment. If any other problems, please do not hesitate to return to the ER.
[2018-04-10] MEDS ORDERED: LORazepam 2 MG/ML SDV IVPUSH STA (03:33)
[2018-04-10 07:26] VITALS: BP 129/75
--- NOTE | 2018-04-10 08:08 | CR ---
Chest: Two views of the chest were obtained. Comparison: Prior chest x-ray of 06/07/17. Heart size and mediastinum are normal. Lungs are clear with no acute parenchymal change. Bony structures are within normal limits for age. Incidental surgical clips are seen from prior cholecystectomy. Impression: 1. Nothing acute is appreciated on two-view chest x-ray. Diagnostic code #1
== END 2018-04-10 07:05 | disposition home or self-care (01) ==
LOC: JD.ED 22:52
DX: F45.8 Other somatoform disorders (principal); K22.6 Gastro-esophageal laceration-hemorrhage syndrome; F41.9 Anxiety disorder, unspecified; E11.9 Type 2 diabetes mellitus without complications; Z79.899 Other long term (current) drug therapy; Z79.84 Long term (current) use of oral hypoglycemic drugs
CPT/HCPCS: 36415; 36600; 71046; 80053; 82803; 84484; 85007; 85027; 93005; 96374; 99285; J2060; J7050; 93010; 99284-25

== ENCOUNTER 2019-08-25 11:15 | Emergency (ER) | payer SELFPAY ==
[2019-08-25 11:38] VITALS: BP 131/83; PULSE 79
[2019-08-25] MEDS ORDERED: FLU Vacc QS2019-20(6MOS+)/PF 60 MCG/0.5 ML SYRINGE IM ONE (11:45)
[2019-08-25] MEDS ORDERED: Ketorolac 30 MG/ML SDV IVPUSH ONE (11:51)
[2019-08-25] MEDS ORDERED: Sodium Chloride 0.9% 10 ML Syringe FLUSH PRN (11:51)
[2019-08-25] MEDS ORDERED: Metoclopramide 10 MG/2 ML SDV IVPUSH ONE (11:51)
[2019-08-25] MEDS ORDERED: diphenhydrAMINE 50 MG/ML SDV IVPUSH ONE (11:51)
--- NOTE | 2019-08-25 11:54 | EDM.PDOC ---
ED HPI GENERAL MEDICAL PROBLEM - General Chief Complaint: Chest Pain Stated Complaint: HEADACHE,CHEST PAIN,VOMITING Time Seen by Provider: 08/25/19 11:26 Source of Information: Reports: Patient, Other (friend) History Limitations: Reports: Language Barrier (pt is primarily greenlandic speaking , her friend helps to translate well.) - History of Present Illness INITIAL COMMENTS - FREE TEXT/NARRATIVE: Patient is a 39-year-old female who presents to the ED for evaluation of chest pain, a headache, and dizziness. The patient is primarily Slovenian-speaking, but her friend is in the room, and does speak British well and helps to translate. Pertinent health history does include DMII, and chronic headaches. The patient states that she developed some left-sided chest pain last night, with associated headache and dizziness. She notes that the pain was not terrible last night, but into this morning it has intensified. She did have one episode of nausea and vomiting today due to the pain. The patient states that her headache is primarily on the left side of her head. She notes that this does feel typical for her normal headaches. She would classify the dizziness more as a lightheadedness when the chest pain was bad. She denies any shortness of breath, she further denies any previous heart history or lung history. The patient notes that she was feeling well up until the chest pain started, she did not characterize any sort of upper respiratory illness prior to this. Patient notes that the pain is sharp in nature and comes and goes in waves. She doesn't relate anything that necessarily makes this worse or better. She did not take any sort of pain medications at home for this. She denies any history of heartburn. Her primary care provider is Lety Myers. 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 History: Psychiatric History: Reports: Anxiety, Depression Endocrine/Metabolic History: Reports: Diabetes, Type II, Obesity/BMI 30+ - Past Surgical History GI Surgical History: Reports: Appendectomy Female Surgical History: Reports: D&C, Tubal Ligation Social & Family History - Family History Family Medical History: Noncontributory - Tobacco Use Smoking Status *Q: Never Smoker - Caffeine Use Caffeine Use: Reports: Coffee - Living Situation & Occupation Living situation: Reports: , with Spouse, with Family (1 daughter) Occupation: Unemployed ED ROS GENERAL - Review of Systems Review Of Systems: See Below Constitutional: Denies: Fever, Chills, Diaphoresis HEENT: Reports: No Symptoms Respiratory: Denies: Shortness of Breath Cardiovascular: Reports: Chest Pain (Left chest discomfort), Lightheadedness. Denies: Blood Pressure Problem, Dyspnea on Exertion, Edema, Orthopnea Endocrine: Denies: Polydypsia, Polyuria GI/Abdominal: Reports: Nausea, Vomiting. Denies: Abdominal Pain, Constipation, Diarrhea : Denies: Dysuria, Frequency, Urgency Musculoskeletal: Reports: No Symptoms Skin: Reports: No Symptoms Neurological: Reports: No Symptoms Psychiatric: Reports: No Symptoms Hematologic/Lymphatic: Reports: No Symptoms Immunologic: Reports: No Symptoms ED EXAM, GENERAL - Physical Exam Exam: See Below Exam Limited By: Language Barrier (pt is primarliy greenlandic speaking, but friend in room helps to translate) General Appearance: Alert, WD/WN, No Apparent Distress Eye Exam: Bilateral Eye: EOMI, Normal Inspection, PERRL Ears: Normal External Exam, Normal Canal, Hearing Grossly Normal, Normal TMs Nose: Normal Inspection Throat/Mouth: Normal Inspection, Normal Lips, Normal Teeth, Normal Gums, Normal Oropharynx, Normal Voice, No Airway Compromise Head: Atraumatic, Normocephalic Neck: Normal Inspection Respiratory/Chest: No Respiratory Distress, Lungs Clear, Normal Breath Sounds, No Accessory Muscle Use, Chest Non-Tender Cardiovascular: Normal Peripheral Pulses, Regular Rate, Rhythm, No Edema, No Murmur Peripheral Pulses: 3+: Radial (L), Radial (R) GI/Abdominal: Normal Bowel Sounds, Soft, Non-Tender, No Distention, No Mass Extremities: Normal Inspection, Normal Capillary Refill Neurological: Alert, Oriented, Normal Cognition, Normal Gait, No Motor/Sensory Deficits Psychiatric: Normal Affect, Normal Mood Skin Exam: Warm, Dry, Intact, Normal Color, No Rash EKG INTERPRETATION EKG Date: 08/25/19 Time: 12:01 Rhythm: NSR Rate (Beats/Min): 80 [place]: Normal P-Wave: Present QRS: Normal ST-T: Normal QT: Normal EKG Interpretation Comments: EKG reviewed by myself and Dr. Hughes, demonstrates multiple premature complexes both ventricular and supraventricular, with a tall R-wave in lead 1, which is suggestive of possible left ventricular hypertrophy. No acute ischemic changes noted. Course - Vital Signs Last Recorded V/S: Last Vital Signs Temp 98.9 F 08/25/19 11:36 Pulse 79 08/25/19 11:36 Resp 20 08/25/19 11:36 BP 131/83 08/25/19 11:36 Pulse Ox 97 08/25/19 11:36 - Orders/Labs/Meds Orders: Active Orders 24 hr Category Date Time Status EKG Documentation Completion [RC] STAT Care 08/25/19 11:51 Active Influenza Vaccine Charge [RC] .DISCHARGE Care 08/25/19 11:33 Active Peripheral IV Care [RC] . DIRECTED Care 08/25/19 11:51 Active Sodium Chloride 0.9% [Normal Saline] 1,000 ml Med 08/25/19 12:00 Active IV ASDIRECTED Sodium Chloride 0.9% [Saline Flush] Med 08/25/19 11:51 Active 10 ml FLUSH ASDIRECTED PRN Peripheral IV Insertion Adult [OM.PC] Routine Oth 08/25/19 11:51 Ordered Medication Orders Sodium Chloride (Normal Saline) 1,000 mls @ 125 mls/hr IV ASDIRECTED TANK Last Admin: 08/25/19 12:22 Dose: 125 mls/hr Sodium Chloride (Saline Flush) 10 ml FLUSH ASDIRECTED PRN PRN Reason: Keep Vein Open Last Admin: 08/25/19 12:25 Dose: 10 ml Labs: Laboratory Tests 08/25/19 08/25/19 Range/Units 12:50 12:50 WBC 6.02 (3.98-10.04) K/mm3 RBC 4.46 (3.98-5.22) M/mm3 Hgb 12.0 (11.2-15.7) gm/dl Hct 37.6 (34.1-44.9) % MCV 84.3 (79.4-94.8) fl MCH 26.9 (25.6-32.2) pg MCHC 31.9 L (32.2-35.5) g/dl RDW Std Deviation 45.3 (36.4-46.3) fL Plt Count 271 (182-369) K/mm3 MPV 10.3 (9.4-12.3) fl Neutrophils % (Manual) 52 (40-60) % Band Neutrophils % 0 (0-10) % Lymphocytes % (Manual) 36 (20-40) % Atypical Lymphs % 0 % Monocytes % (Manual) 10 (2-10) % Eosinophils % (Manual) 2 (0.7-5.8) % Basophils % (Manual) 0 L (0.1-1.2) Platelet Estimate Adequate RBC Morph Comment Normal Sodium 140 (136-145) mEq/L Potassium 3.8 (3.5-5.1) mEq/L Chloride 106 (98-107) mEq/L Carbon Dioxide 24 (21-32) mEq/L Anion Gap 13.8 (5-15) BUN 9 (7-18) mg/dL Creatinine 0.7 (0.55-1.02) mg/dL Est Cr Clr Drug Dosing 84.49 mL/min Estimated GFR (MDRD) > 60 (>60) mL/min BUN/Creatinine Ratio 12.9 L (14-18) Glucose 268 H (74-106) mg/dL Calcium 8.6 (8.5-10.1) mg/dL Magnesium 2.1 (1.8-2.4) mg/dl Total Bilirubin 0.4 (0.2-1.0) mg/dL AST 28 (15-37) U/L ALT 54 (14-59) U/L Alkaline Phosphatase 99 (46-116) U/L Troponin I < 0.017 (0.00-0.056) ng/mL Total Protein 7.4 (6.4-8.2) g/dl Albumin 3.4 (3.4-5.0) g/dl Globulin 4.0 gm/dL Albumin/Globulin Ratio 0.9 L (1-2) Meds: Medications Generic Name Dose Route Start Last Admin Trade Name Freq PRN Reason Stop Dose Admin Sodium Chloride 1,000 mls @ 125 mls/hr 11/27/19 12:00 08/25/19 12:22 Normal Saline IV 125 mls/hr ASDIRECTED TANK Administration Sodium Chloride 10 ml 08/25/19 11:51 08/25/19 12:25 Saline Flush FLUSH 10 ml ASDIRECTED PRN Administration Keep Vein Open Discontinued Medications Generic Name Dose Route Start Last Admin Trade Name Andreq PRN Reason Stop Dose Admin Diphenhydramine HCl 25 mg 08/25/19 11:51 08/25/19 12:22 Benadryl IVPUSH 08/25/19 11:52 25 mg ONETIME ONE Administration Influenza Virus Vaccine 60 mcg 08/25/19 11:45 08/25/19 12:27 Fluzone Quad Syringe IM 08/25/19 11:46 60 mcg .ONCE ONE Administration Ketorolac Tromethamine 30 mg 08/25/19 11:51 08/25/19 12:24 Toradol IVPUSH 08/25/19 11:52 30 mg ONETIME ONE Administration Metoclopramide HCl 10 mg 08/25/19 11:51 08/25/19 12:23 Reglan IVPUSH 08/25/19 11:52 10 mg ONETIME ONE Administration - Re-Assessments/Exams Free Text/Narrative Re-Assessment/Exam: 08/25/19 11:58 Patient presents to the ED for evaluation of chest pain and a headache. The patient's chest was tender on palpation on the left anterior chest around the third or fourth rib, suggesting more of a costochondritis type pain in nature. I did order EKG, chest x-ray, CBC, CMP, troponin, magnesium level for initial evaluation, also I did order IV placed with some IV fluids, 30 mg IV Toradol, 10 mg IV Reglan, and 25 mg IV Benadryl for headache. 08/25/19 13:37 Chest x-ray is done, and demonstrates no acute abnormalities as per portable technique. 08/25/19 14:06 Patient was reassessed at bedside, and states she feels much better after IV fluids and medications. Labs are done, and demonstrate no acute abnormalities. Blood sugar is mildly elevated at 268, however she is a diabetic and on metformin daily. We'll have her go home and eat a normal meal, this should help with this. At this time I do believe that the patient is suffering from costochondritis, and we'll treat her as such. Departure - Departure Time of Disposition: 14:07 Disposition: Home, Self-Care 01 Condition: Fair Clinical Impression: Acute costochondritis Instructions: Costochondritis, [id number], Nonspecific Chest Pain, Easy-to- Read Referrals: Lety Myers PA-C [Primary Care Provider] - Forms: ED Department Discharge Additional Instructions: You were evaluated in the ER today regarding your left-sided chest pain. You've had an EKG, chest x-ray, and laboratory evaluation done today at this visit. All of this was within normal limits, you are not having a heart attack at this ER visit. Your symptoms are most likely due to a viral infection of the rib lining on your chest (costochondritis). This is treated with ibuprofen, 600 mg every 6 hours as needed for pain relief. Please do not take more than a 3200 mg ibuprofen in a 24-hour time span. Please return to the ER at any time if your symptoms change or worsen. Usted fue evaluado hoy en la maauri de emergencias con respecto a woo dolor en el pecho del lado kai. Hoy le hicieron un electrocardiograma, cheyanne radiografa de trax y cheyanne evaluacin de laboratorio en esta visita. Todo esto estuvo dentro de los lmites normales, no est teniendo un ataque cardaco en esta visita a la amauri de emergencias. Lo ms probable es que sujit sntomas se deban a cheyanne infeccin viral de las costillas del pecho (costocondritis). [place] se trata con ibuprofeno, 600 mg cada 6 horas segn sea necesario para aliviar el dolor. No tome ms de 3200 mg de ibuprofeno en un lapso de 24 horas. Regrese a la amauri de emergencias en cualquier momento si sujit sntomas cambian o empeoran. - My Orders Last 24 Hours: My Active Orders 08/25/19 11:33 Influenza Vaccine Charge [RC] .DISCHARGE 08/25/19 11:51 EKG Documentation Completion [RC] STAT Peripheral IV Care [RC] . DIRECTED Sodium Chloride 0.9% [Saline Flush] 10 ml FLUSH ASDIRECTED PRN Peripheral IV Insertion Adult [OM.PC] Routine 08/25/19 12:00 Sodium Chloride 0.9% [Normal Saline] 1,000 ml IV ASDIRECTED - Assessment/Plan Last 24 Hours: My Active Orders 08/25/19 11:33 Influenza Vaccine Charge [RC] .DISCHARGE 08/25/19 11:51 EKG Documentation Completion [RC] STAT Peripheral IV Care [RC] . DIRECTED Sodium Chloride 0.9% [Saline Flush] 10 ml FLUSH ASDIRECTED PRN Peripheral IV Insertion Adult [OM.PC] Routine 08/25/19 12:00 Sodium Chloride 0.9% [Normal Saline] 1,000 ml IV ASDIRECTED
[2019-08-25] MEDS ORDERED: Sodium Chloride 0.9% 1,000 ML IV SCH (12:00)
--- NOTE | 2019-08-25 13:18 | CR ---
Chest: Portable view of the chest was obtained. Comparison: Prior chest x-ray of 04/09/18. Heart size and mediastinum are normal. Lungs are clear. Bony structures are grossly intact. Impression: 1. Nothing acute is seen on portable chest x-ray. Diagnostic code #1 This report was dictated in [place] Standard Time
== END 2019-08-25 14:24 | disposition home or self-care (01) ==
LOC: JD.ED 11:15
DX: M94.0 Chondrocostal junction syndrome [Tietze] (principal); E11.9 Type 2 diabetes mellitus without complications; E66.9 Obesity, unspecified; F41.9 Anxiety disorder, unspecified; F32.9 Major depressive disorder, single episode, unspecified; Z68.32 Body mass index [BMI] 32.0-32.9, adult
CPT/HCPCS: 36415; 71045; 80053; 83735; 84484; 85007; 85027; 90471; 90686; 93005; 96361; 96374; 96375; 99285; J1200; J1885; J2765; J7040

== ENCOUNTER 2019-11-25 09:39 | Emergency (ER) | payer OTHER ==
[2019-11-25 10:04] VITALS: BP 116/71; PULSE 77
--- NOTE | 2019-11-25 10:17 | EDM.PDOC ---
ED HPI GENERAL MEDICAL PROBLEM - General Chief Complaint: Head Injury Stated Complaint: FALL (HEAD INJURY) Time Seen by Provider: 11/25/19 09:55 Source of Information: Reports: Patient History Limitations: Reports: No Limitations - History of Present Illness INITIAL COMMENTS - FREE TEXT/NARRATIVE: The patient presents with with a headache and neck pain after a fall. She slipped on the ice and fell and hit her head. She may have had a brief LOC. She has a bad headache and some neck pain. She has some pain in the right wrist and left forearm. She has full range of motion and no swelling though. She has no numbness or weakness. She has no nausea or vomiting. She has some low back pain. Onset: Sudden Duration: Minutes: Location: Reports: Head, Neck, Back Quality: Reports: Sharp Severity: Moderate Improves with: Reports: None Worsens with: Reports: None Context: Reports: Trauma (slipped and fell) Associated Symptoms: Reports: Headaches. Denies: Chest Pain, Cough, Fever/ Chills, Nausea/Vomiting, Shortness of Breath - Related Data Allergies Allergy/AdvReac Type Severity Reaction Status Date / Time No Known Allergies Allergy Verified 04/09/18 23:20 Home Meds: Home Meds Sertraline [Zoloft] 50 mg PO QPM 06/07/17 [History] metFORMIN [Glucophage XR] 500 mg PO DAILY 06/07/17 [History] atorvaSTATin [Lipitor] 20 mg PO BEDTIME 11/25/19 [History] glipiZIDE [Glipizide ER] 5 mg PO DAILY 11/25/19 [History] Past Medical History - Past Health History Medical/Surgical History: Denies Medical/Surgical History Cardiovascular History: Reports: High Cholesterol Genitourinary History: Reports: Renal Calculus 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 History: Psychiatric History: Reports: Anxiety, Depression Endocrine/Metabolic History: Reports: Diabetes, Type II, Obesity/BMI 30+ - Past Surgical History GI Surgical History: Reports: Appendectomy Female Surgical History: Reports: D&C, Tubal Ligation Social & Family History - Family History Family Medical History: Noncontributory - Caffeine Use Caffeine Use: Reports: Coffee - Living Situation & Occupation Living situation: Reports: , with Spouse, with Family (1 daughter) Occupation: Unemployed ED ROS GENERAL - Review of Systems Review Of Systems: See Below Constitutional: Reports: No Symptoms HEENT: Reports: No Symptoms Respiratory: Reports: No Symptoms Cardiovascular: Reports: No Symptoms Endocrine: Reports: No Symptoms GI/Abdominal: Reports: No Symptoms : Reports: No Symptoms Musculoskeletal: Reports: Back Pain (low back). Denies: Neck Pain Neurological: Reports: Headache ED EXAM, HEAD INJURY - Physical Exam Exam: See Below Exam Limited By: No Limitations General Appearance: Alert, No Apparent Distress Head: Other (Pain upon palpation to the occipital region of the head) Neck: Other (Upper neck pain) Respiratory: No Respiratory Distress, Lungs Clear, Normal Breath Sounds Cardiovascular: Regular Rate, Rhythm, No Edema, No Murmur GI/Abdominal Exam: Soft, Non-Tender, No Organomegaly, No Mass Back Exam: Normal Inspection Extremities: Other (Mild pain upon palpation to the right wrist. Mild pain upon palpation to the left forearm. Good sensation and pulses distally.) Course - Vital Signs Last Recorded V/S: Last Vital Signs Temp 98.1 F 11/25/19 09:58 Pulse 77 11/25/19 09:58 Resp 24 H 11/25/19 09:58 BP 116/71 11/25/19 09:58 Pulse Ox 96 11/25/19 09:58 - Orders/Labs/Meds Orders: Active Orders 24 hr Category Date Time Status Thoracic Spine 2V [CR] Stat Exams 11/25/19 10:17 Taken - Re-Assessments/Exams Free Text/Narrative Re-Assessment/Exam: 11/25/19 10:59 I had the model builder display on Ipad help me. I ordered a CT of her head and c-spine. 11/25/19 12:20 The CTs look good. The x-ray of her thoracic spine looks good. I will discharge her home. Departure - Departure Time of Disposition: 12:30 Disposition: Home, Self-Care 01 Condition: Good Clinical Impression: Strain of thoracic spine Fall Qualifiers: Encounter type: initial encounter Qualified Code(s): W19.XXXA - Unspecified fall, initial encounter Head injury Qualifiers: Encounter type: initial encounter Qualified Code(s): S09.90XA - Unspecified injury of head, initial encounter Contusion of head Qualifiers: Encounter type: initial encounter Contusion of head detail: scalp Qualified Code(s): S00.03XA - Contusion of scalp, initial encounter - Discharge Information *PRESCRIPTION DRUG MONITORING PROGRAM REVIEWED*: Not Applicable *COPY OF PRESCRIPTION DRUG MONITORING REPORT IN PATIENT IVONNE: Not Applicable Referrals: Lety Myers PA-C [Primary Care Provider] - 1 Week Forms: ED Department Discharge Additional Instructions: Take tylenol or motrin for any pain. Ice the areas that hurt for 15 minutes 3 times per day for 2 days. Please return if you are worse. Sepsis Event Note - Evaluation Sepsis Screening Result: No Definite Risk - Focused Exam Vital Signs: Vital Signs Temp Pulse Resp BP Pulse Ox 11/25/19 09:58 98.1 F 77 24 H 116/71 96 Date Exam was Performed: 11/25/19 Time Exam was Performed: 12:20 - My Orders Last 24 Hours: My Active Orders 11/25/19 10:17 Thoracic Spine 2V [CR] Stat - Assessment/Plan Last 24 Hours: My Active Orders 11/25/19 10:17 Thoracic Spine 2V [CR] Stat
--- NOTE | 2019-11-25 11:43 | CT ---
Head CT Technique: Multiple axial sections through the brain were obtained. Intravenous contrast was not utilized. Comparison: Prior head CT study of 05/28/17. Findings: Ventricles along with basal cisterns and sulci over the convexities are within normal limits for the patient's age. No abnormal parenchymal densities are seen. No evidence of intracranial hemorrhage. No midline shift or mass-effect is seen. Bone window settings were reviewed which show no acute calvarial abnormality. Mild mucosal thickening is seen within the left maxillary sinus. Impression: 1. Left maxillary sinus finding which is most likely chronic. 2. No acute intracranial abnormality is appreciated. Diagnostic code #2 This report was dictated in [place] Standard Time
--- NOTE | 2019-11-25 11:43 | CT ---
CT cervical spine Technique: Multiple axial sections were obtained from above C1 inferiorly to the bottom of T3. Reconstructed sagittal and coronal images were reviewed. Findings: Vertebral body heights and disc spaces are maintained. Vertebral bodies and posterior arches are intact. No fracture is seen. No abnormal subluxation is seen on the reconstructed sagittal images. Joint space narrowing noted within both temporomandibular joints. Mastoid sinuses are clear. Impression: 1. Slight narrowing of both temporomandibular joints compatible with early degenerative change. 2. Nothing acute is appreciated on CT study of the cervical spine. Diagnostic code #2 This report was dictated in [place] Standard Time
--- NOTE | 2019-11-25 12:36 | CR ---
Thoracic spine: AP and lateral views of the thoracic spine were obtained. Vertebral body heights and disc spaces are fairly well-preserved. Minimal scattered endplate osteophytes are seen. Pedicles are intact. No subluxation or fracture is appreciated. Surgical clips seen from prior cholecystectomy. Impression: 1. Slight scattered endplate osteophytes. 2. Nothing acute is seen on two-view thoracic spine study. Diagnostic code #2 This report was dictated in [place] Standard Time
== END 2019-11-25 13:07 | disposition home or self-care (01) ==
LOC: JD.ED 09:39
DX: S29.012A Strain of muscle and tendon of back wall of thorax, initial encounter (principal); S00.03XA Contusion of scalp, initial encounter; M79.632 Pain in left forearm; M25.531 Pain in right wrist; E78.00 Pure hypercholesterolemia, unspecified; F32.9 Major depressive disorder, single episode, unspecified; E11.9 Type 2 diabetes mellitus without complications; E66.9 Obesity, unspecified; Z79.899 Other long term (current) drug therapy; Z79.84 Long term (current) use of oral hypoglycemic drugs; Z68.29 Body mass index [BMI] 29.0-29.9, adult; W00.0XXA Fall on same level due to ice and snow, initial encounter
CPT/HCPCS: 70450; 70450-26; 72070; 72070-26; 72125; 72125-26; 99282; 99284-25

== ENCOUNTER 2020-06-28 12:31 | Emergency (ER) | payer SELFPAY, OTHER ==
[2020-06-28 12:50] VITALS: BP 145/93; PULSE 83
[2020-06-28] MEDS ORDERED: Sodium Chloride 0.9% 1,000 ML IV STA (13:17)
[2020-06-28] MEDS ORDERED: Ketorolac 30 MG/ML SDV IVPUSH ONE (13:17)
--- NOTE | 2020-06-28 13:34 | EDM.PDOC ---
ED HPI GENERAL MEDICAL PROBLEM - General Chief Complaint: Diabetic Complaint Stated Complaint: DIABETIC COMPLAINT Time Seen by Provider: 06/28/20 12:42 Source of Information: Reports: Patient History Limitations: Reports: No Limitations - History of Present Illness INITIAL COMMENTS - FREE TEXT/NARRATIVE: Patient is a 40-year-old female presenting to the emergency department with complaints of headache, body aches, and an elevated blood glucose. Symptoms started this morning. Patient is type II diabetic on oral medications, however she is unsure which medications she is on currently. States they changed it recently. She is had no known fever, however states that she feels hot. Denies any chills, abdominal pain, nausea, vomiting, or diarrhea. She states that she gets symptoms of headache and body aches whenever her blood sugar goes high. She checked her blood sugar this morning 2 hours after eating and it was 437. Headache Pain Score (Numeric/FACES): 8 - Related Data Allergies Allergy/AdvReac Type Severity Reaction Status Date / Time No Known Allergies Allergy Verified 06/28/20 12:56 Home Meds: Home Meds . 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 History: Psychiatric History: Reports: Anxiety, Depression Endocrine/Metabolic History: Reports: Diabetes, Type II, Obesity/BMI 30+ - Past Surgical History GI Surgical History: Reports: Appendectomy Female Surgical History: Reports: D&C, Tubal Ligation Social & Family History - Family History Family Medical History: Noncontributory - Tobacco Use Smoking Status *Q: Never Smoker - Caffeine Use Caffeine Use: Reports: Coffee, Tea - Recreational Drug Use Recreational Drug Use: No - Living Situation & Occupation Living situation: Reports: , with Spouse, with Family (1 daughter) Occupation: Unemployed ED ROS GENERAL - Review of Systems Review Of Systems: See Below Constitutional: Reports: No Symptoms. Denies: Fever, Chills, Weakness HEENT: Reports: No Symptoms Respiratory: Reports: No Symptoms. Denies: Shortness of Breath, Cough Cardiovascular: Reports: No Symptoms. Denies: Chest Pain Endocrine: Reports: High Glucose GI/Abdominal: Reports: No Symptoms. Denies: Abdominal Pain, Diarrhea, Nausea, Vomiting : Reports: No Symptoms Musculoskeletal: Reports: Other (Generalized body aches) Skin: Reports: No Symptoms Neurological: Reports: Headache. Denies: Confusion, Dizziness Psychiatric: Reports: No Symptoms Hematologic/Lymphatic: Reports: No Symptoms Immunologic: Reports: No Symptoms ED EXAM GENERAL NO PERIP PULSE - Physical Exam Exam: See Below General Appearance: Alert, WD/WN, No Apparent Distress Respiratory/Chest: No Respiratory Distress, Lungs Clear, Normal Breath Sounds, No Accessory Muscle Use, Chest Non-Tender Cardiovascular: Normal Peripheral Pulses, Regular Rate, Rhythm, No Edema, No Gallop, No JVD, No Murmur, No Rub GI/Abdominal: Normal Bowel Sounds, Soft, Non-Tender, No Organomegaly, No Distention, No Abnormal Bruit, No Mass Neurological: Alert, Oriented, CN II-XII Intact, Normal Cognition, Normal Gait, Normal Reflexes, No Motor/Sensory Deficits Psychiatric: Normal Affect, Normal Mood Skin Exam: Warm, Dry, Intact, Normal Color, No Rash Course - Vital Signs Last Recorded V/S: Last Vital Signs Temp 98.3 F 06/28/20 12:49 Pulse 83 06/28/20 12:49 Resp 16 06/28/20 12:49 BP 145/93 H 06/28/20 12:49 Pulse Ox 97 06/28/20 12:49 - Orders/Labs/Meds Orders: Active Orders 24 hr Category Date Time Status CORONAVIRUS COVID-19 PCR PH[facility] Routine Lab 06/28/20 15:30 Received Labs: Laboratory Tests 06/28/20 06/28/20 06/28/20 Range/Units 13:45 13:45 13:45 WBC 6.33 (3.98-10.04) K/mm3 RBC 4.46 (3.98-5.22) M/mm3 Hgb 12.1 (11.2-15.7) gm/dl Hct 38.3 (34.1-44.9) % MCV 85.9 (79.4-94.8) fl MCH 27.1 (25.6-32.2) pg MCHC 31.6 L (32.2-35.5) g/dl RDW Std Deviation 47.1 H (36.4-46.3) fL Plt Count 282 (182-369) K/mm3 MPV 10.8 (9.4-12.3) fl Neut % (Auto) 51.2 (34.0-71.1) % Lymph % (Auto) 38.2 (19.3-51.7) % Baker % (Auto) 8.8 (4.7-12.5) % Eos % (Auto) 1.3 (0.7-5.8) Baso % (Auto) 0.3 (0.1-1.2) % Neut # (Auto) 3.24 (1.56-6.13) K/mm3 Lymph # (Auto) 2.42 (1.18-3.74) K/mm3 Baker # (Auto) 0.56 H (0.24-0.36) K/mm3 Eos # (Auto) 0.08 (0.04-0.36) K/mm3 Baso # (Auto) 0.02 (0.01-0.08) K/mm3 Sodium 136 (136-145) mEq/L Potassium 3.9 (3.5-5.1) mEq/L Chloride 100 (98-107) mEq/L Carbon Dioxide 25 (21-32) mEq/L Anion Gap 14.9 (5-15) BUN 9 (7-18) mg/dL Creatinine 0.8 (0.55-1.02) mg/dL Est Cr Clr Drug Dosing 86.63 mL/min Estimated GFR (MDRD) > 60 (>60) mL/min BUN/Creatinine Ratio 11.3 L (14-18) Glucose 364 H (74-106) mg/dL POC Glucose (70-105) mg/dL Calcium 8.7 (8.5-10.1) mg/dL Total Bilirubin 0.5 (0.2-1.0) mg/dL AST 20 (15-37) U/L ALT 42 (14-59) U/L Alkaline Phosphatase 132 H (46-116) U/L C-Reactive Protein 0.7 (<1.0) mg/dL Total Protein 7.8 (6.4-8.2) g/dl Albumin 3.7 (3.4-5.0) g/dl Globulin 4.1 gm/dL Albumin/Globulin Ratio 0.9 L (1-2) Urine Color (Yellow) Urine Appearance (Clear) Urine pH (5.0-8.0) Ur Specific Harmans (1.005-1.030) Urine Protein (Negative) Urine Glucose (UA) (Negative) Urine Ketones (Negative) Urine Occult Blood (Negative) Urine Nitrite (Negative) Urine Bilirubin (Negative) Urine Urobilinogen (0.2-1.0) Ur Leukocyte Esterase (Negative) Urine RBC (0-5) /hpf Urine WBC (0-5) /hpf Ur Squamous Epith Cells (0-5) /hpf Urine Bacteria (FEW) /hpf Urine Mucus (FEW) /hpf Ketones 0.12 (0.0-0.3) mM 06/28/20 06/28/20 Range/Units 14:46 15:13 WBC (3.98-10.04) K/mm3 RBC (3.98-5.22) M/mm3 Hgb (11.2-15.7) gm/dl Hct (34.1-44.9) % MCV (79.4-94.8) fl MCH (25.6-32.2) pg MCHC (32.2-35.5) g/dl RDW Std Deviation (36.4-46.3) fL Plt Count (182-369) K/mm3 MPV (9.4-12.3) fl Neut % (Auto) (34.0-71.1) % Lymph % (Auto) (19.3-51.7) % Baker % (Auto) (4.7-12.5) % Eos % (Auto) (0.7-5.8) Baso % (Auto) (0.1-1.2) % Neut # (Auto) (1.56-6.13) K/mm3 Lymph # (Auto) (1.18-3.74) K/mm3 Baker # (Auto) (0.24-0.36) K/mm3 Eos # (Auto) (0.04-0.36) K/mm3 Baso # (Auto) (0.01-0.08) K/mm3 Sodium (136-145) mEq/L Potassium (3.5-5.1) mEq/L Chloride (98-107) mEq/L Carbon Dioxide (21-32) mEq/L Anion Gap (5-15) BUN (7-18) mg/dL Creatinine (0.55-1.02) mg/dL Est Cr Clr Drug Dosing mL/min Estimated GFR (MDRD) (>60) mL/min BUN/Creatinine Ratio (14-18) Glucose (74-106) mg/dL POC Glucose 259 H (70-105) mg/dL Calcium (8.5-10.1) mg/dL Total Bilirubin (0.2-1.0) mg/dL AST (15-37) U/L ALT (14-59) U/L Alkaline Phosphatase (46-116) U/L C-Reactive Protein (<1.0) mg/dL Total Protein (6.4-8.2) g/dl Albumin (3.4-5.0) g/dl Globulin gm/dL Albumin/Globulin Ratio (1-2) Urine Color Yellow (Yellow) Urine Appearance Clear (Clear) Urine pH 6.0 (5.0-8.0) Ur Specific Harmans 1.015 (1.005-1.030) Urine Protein Negative (Negative) Urine Glucose (UA) 2+ H (Negative) Urine Ketones Negative (Negative) Urine Occult Blood 2+ H (Negative) Urine Nitrite Negative (Negative) Urine Bilirubin Negative (Negative) Urine Urobilinogen 0.2 (0.2-1.0) Ur Leukocyte Esterase Negative (Negative) Urine RBC Not seen (0-5) /hpf Urine WBC 0-5 (0-5) /hpf Ur Squamous Epith Cells 0-5 (0-5) /hpf Urine Bacteria Rare (FEW) /hpf Urine Mucus Not seen (FEW) /hpf Ketones (0.0-0.3) mM Meds: Medications Discontinued Medications Generic Name Dose Route Start Last Admin Trade Name Darrius PRN Reason Stop Dose Admin Acetaminophen 975 mg 06/28/20 15:19 06/28/20 15:33 Tylenol PO 06/28/20 15:20 975 mg NOW ONE Administration Sodium Chloride 1,000 mls @ 999 mls/hr 06/28/20 13:17 06/28/20 13:56 Normal Saline IV 06/28/20 14:17 999 mls/hr NOW STA Administration Insulin Human Regular 8 unit 06/28/20 14:43 Humulin R SUBCUT 06/28/20 14:44 ONETIME ONE Ketorolac Tromethamine 30 mg 06/28/20 13:17 06/28/20 13:54 Toradol IVPUSH 06/28/20 13:18 30 mg ONETIME ONE Administration - Re-Assessments/Exams Free Text/Narrative Re-Assessment/Exam: Patient is a 40-year-old female presenting to the emergency department with complaints of generalized body aches and headaches with a high blood sugar. She is Swiss-speaking, therefore the iPad bus matron was utilized. She is unsure which diabetic medications she is on, however states that her blood sugar 2 hours after breakfast was 437. On review of the notes from patient's last visit with her primary care provider, THONG Estrada, she is prescribed to take glipizide 10 mg daily as well as metformin ER 1000 mg twice daily. Notes from the primary care provider state that patient no showed her appointment with diabetic education. She has been opposed to injectable medications but is now open to this option. Her primary care provider would like her to see development educator prior to starting any injectable insulins. I have ordered a CBC, CRP, CMP, ketones, urinalysis, 1 L bolus of normal saline, and Toradol 30 mg IV. 06/28/20 15:26 Hematology was significant for a glucose initially elevated at 364, however after 1 L bolus of IV fluids, to come down to 259. Her body aches have improved, however she does still have a headache. I ordered Tylenol 975 mg IV. Patient states that she has an appointment coming up with diabetic education but she is unsure when. Recommend that she contact the clinic to find out when that appointment is as it is important that she attends this so that they may discuss initiation of insulin. We also test her for coronavirus today due to her symptoms of bodyaches and headache. She should continue her diabetic medications as previously prescribed. Discharge instructions as documented. Departure - Departure Time of Disposition: 15:27 Disposition: Home, Self-Care 01 Condition: Good Clinical Impression: Hyperglycemia, Generalized body aches Headache Qualifiers: Headache type: unspecified Headache chronicity pattern: acute headache Intractability: not intractable Qualified Code(s): R51 - Headache - Discharge Information *PRESCRIPTION DRUG MONITORING PROGRAM REVIEWED*: No *COPY OF PRESCRIPTION DRUG MONITORING REPORT IN PATIENT IVONNE: No Instructions: General Headache Without Cause, Hyperglycemia, [id number] Referrals: Lety Myers PA-C [Physician University Registrar] - Forms: ED Department Discharge Additional Instructions: You were seen in the ER today for headache, body aches, and a high blood sugar. Your blood sugar was 356 upon arrival to ER. After a liter of IV fluids, your blood sugar came down to 256. The remainder of your workup was normal. While in ER, you received IV haque, Toradol for her headache, as well as a dose of Tylenol. Recommend that you go home and rest. Continue to use Tylenol and ibuprofen as needed for headache. Ensure that you are taking an adequate amount of fluid. Continue to take your diabetic medications and check your blood sugars frequently. You have been tested for coronavirus as this can sometimes cause symptoms of body aches and headache. Results of this generally take 24 to 72 hours to be available. You should quarantine until symptoms resolve and the results are available. Follow-up with your primary care provider and with diabetic education as scheduled. Return to the ER as needed. Hoy lo vieron en la amauri de emergencias por dolor de akil, karlene corporales y un nivel alto de azcar en la janay. Wahl nivel de azcar en janay era de 356 al llegar a [facility]. Despus de un litro de lquidos intravenosos, wahl nivel de azcar en janay baj a 256. El madyson de wahl evaluacin fue normal. Mientras estaba en Urgen[facility], recibi maderas intravenosas, Toradol para wahl dolor de akil, as boby cheyanne dosis de Tylenol. Te recomiendo que vayas a casa y descanses. Contine usando Tylenol e ibuprofeno segn sea necesario para el dolor de akil. Asegrese de melanie cheyanne cantidad adecuada de lquido. Contine tomando sujit medicamentos para la diabetes y controle wahl azcar en janay con frecuencia. Le benavides hecho cheyanne prueba de coronavirus, ya que a veces puede causar sntomas de karlene corporales y dolor de akil. Los resultados de esto gen eralmente juvenal de 24 a 72 horas para estar disponibles. Debe poner en cuarentena hasta que los sntomas se resuelvan y los resultados estn disponibles. Dagoberto un seguimiento con wahl proveedor de atencin primaria y con educacin sobre la diabetes segn lo programado. Regrese a la amauri de emergencias segn sea necesario. Sepsis Event Note (ED) - Evaluation Sepsis Screening Result: No Definite Risk - Focused Exam Vital Signs: Vital Signs Temp Pulse Resp BP Pulse Ox 06/28/20 12:49 98.3 F 83 16 145/93 H 97 - My Orders Last 24 Hours: My Active Orders 06/28/20 15:30 CORONAVIRUS COVID-19 PCR [facility] Routine - Assessment/Plan Last 24 Hours: My Active Orders 06/28/20 15:30 CORONAVIRUS COVID-19 PCR [facility] Routine
[2020-06-28] MEDS ORDERED: Insulin Regular, Human 100 Units/ML 3 ML Vial SUBCUT ONE (14:43)
[2020-06-28] MEDS ORDERED: Acetaminophen 325 MG Tab PO ONE (15:19)
== END 2020-06-28 16:24 | disposition home or self-care (01) ==
LOC: JD.ED 12:31
DX: E11.65 Type 2 diabetes mellitus with hyperglycemia (principal); R51 Headache; E66.9 Obesity, unspecified; Z68.30 Body mass index [BMI] 30.0-30.9, adult; Z20.828 Contact with and (suspected) exposure to other viral communicable diseases
CPT/HCPCS: 36415; 80053; 81001; 82009; 82962; 85025; 86140; 96361; 96374; 99284; A9270; J1885; J7030; U0002

== ENCOUNTER 2020-11-27 11:27 | Emergency (ER) | payer OTHER ==
[2020-11-27 11:45] VITALS: BP 145/77; PULSE 79
--- NOTE | 2020-11-27 12:32 | CT ---
Head CT Technique: Multiple axial sections through the brain were obtained. Intravenous contrast was not utilized. Reconstructed coronal and sagittal images were obtained. Comparison: Prior head CT study of 02/22/20. Findings: Ventricles along with basal cisterns and sulci over the convexities are within normal limits for the patient's age. No abnormal parenchymal densities are seen. No evidence of intracranial hemorrhage is seen. No midline shift or mass-effect is appreciated. Bone window settings were reviewed. Visualized mastoid sinuses are clear. Possible small air-fluid level within the left maxillary sinus is noted. No acute calvarial finding is appreciated. Impression: 1. Small air-fluid level partially seen within the left maxillary sinus. This may relate to prior trauma or represent evidence of acute sinusitis. 2. No acute intracranial abnormality is appreciated. Diagnostic code #3
--- NOTE | 2020-11-27 13:17 | EDM.PDOC ---
ED HPI GENERAL MEDICAL PROBLEM - General Chief Complaint: Head Injury Stated Complaint: FALL,HEAD INJURY Time Seen by Provider: 11/27/20 11:38 Source of Information: Reports: Patient, RN Notes Reviewed History Limitations: Reports: No Limitations - History of Present Illness INITIAL COMMENTS - FREE TEXT/NARRATIVE: Patient is a 40-year-old female presenting to the emergency department with complaints of head injury. She states she was cleaning the shower when she fell and hit her head on the water faucet. She does think she lost consciousness. Her mother states she thinks it was about 5 minutes. At this time she is complaining of a mild headache as well as some intermittent dizziness. She does have a laceration above her left eyebrow. She denies any vision changes, nausea, or vomiting. - Related Data Allergies Allergy/AdvReac Type Severity Reaction Status Date / Time No Known Allergies Allergy Verified 06/28/20 12:56 Home Meds: Home Meds Acetaminophen/Codeine [Tylenol with Codeine No.3 300MG/30MG] 1 tab PO Q4H PRN 11/27/20 [History] Amoxicillin 500 mg PO TID 11/27/20 [History] Pioglitazone [Actos] 15 mg PO DAILY 11/27/20 [History] Sertraline [Zoloft] 50 mg PO DAILY 11/27/20 [History] glyBURIDE [Glyburide] 5 mg PO DAILY 11/27/20 [History] Past Medical History - Past Health History Medical/Surgical History: Denies Medical/Surgical History Cardiovascular History: Reports: High Cholesterol Genitourinary History: Reports: Renal Calculus 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: Psychiatric History: Reports: Anxiety, Depression Endocrine/Metabolic History: Reports: Diabetes, Type II, Obesity/BMI 30+ - Past Surgical History GI Surgical History: Reports: Appendectomy Female Surgical History: Reports: D&C, Tubal Ligation Social & Family History - Family History Family Medical History: No Pertinent Family History - Tobacco Use Tobacco Use Status *Q: Never Tobacco User Second Hand Smoke Exposure: No - Caffeine Use Caffeine Use: Reports: None - Recreational Drug Use Recreational Drug Use: No - Living Situation & Occupation Living situation: Reports: , with Spouse, with Family (1 daughter) Occupation: Unemployed ED ROS GENERAL - Review of Systems Review Of Systems: See Below Constitutional: Reports: No Symptoms HEENT: Reports: No Symptoms. Denies: Vision Change Respiratory: Reports: No Symptoms Cardiovascular: Reports: No Symptoms Endocrine: Reports: No Symptoms GI/Abdominal: Reports: No Symptoms : Reports: No Symptoms Musculoskeletal: Reports: No Symptoms Skin: Reports: No Symptoms Neurological: Reports: Dizziness, Headache. Denies: Confusion, Trouble Spe aking, Difficulty Walking, Change in Speech Psychiatric: Reports: No Symptoms Hematologic/Lymphatic: Reports: No Symptoms Immunologic: Reports: No Symptoms ED EXAM, HEAD INJURY - Physical Exam Exam: See Below Exam Limited By: No Limitations General Appearance: Alert, WD/WN, No Apparent Distress Head: Normocephalic, Facial Lacerations (2 cm superficial above left eyebrow.) Nexus Criteria: No: Posterior, Midline Cervical Tenderness, Evidence of Intoxication, Altered Level of Consciousness, Focal Neurological Deficit, Painful Distraction Injuries Eyes: Bilateral Eye: Normal Inspection, PERRL Neck: Non-Tender, Full Range of Motion, Normal Alignment, Normal Inspection Respiratory: No Respiratory Distress, Lungs Clear, Normal Breath Sounds, No Accessory Muscle Use, Chest Non-Tender Cardiovascular: Normal Peripheral Pulses, Regular Rate, Rhythm, No Edema, No Gallop, No JVD, No Murmur, No Rub Neurologic: blueprinter II-XII nml As Tested, No Motor/Sensory Deficits, Alert, Normal Mood/Affect, Oriented x 3 - Karri Coma Score Best Eye Response ([place]): (4) Open Spontaneously Best Verbal Response (Karri): (5) Oriented Best Motor Response (Karri): (6) Obeys Commands Course - Vital Signs Last Recorded V/S: Last Vital Signs Temp 97.5 F 11/27/20 11:38 Pulse 79 11/27/20 11:38 Resp 16 11/27/20 11:38 BP 145/77 H 11/27/20 11:38 Pulse Ox 98 11/27/20 11:38 - Re-Assessments/Exams Free Text/Narrative Re-Assessment/Exam: Patient is a 40-year-old, [place]-speaking, female presenting to the emergency department with complaints of head injury with subsequent headache and dizziness. The brim greaser operator iPad was used for translation. She states that she was cleaning the bathtub when she fell and hit her head on the faucet. She does think she lost consciousness and her mother thinks it was about 5 minutes that she was unconscious. Her neurologic exam is normal. She does have a 2 cm superficial laceration above her left eyebrow. Nursing staff will clean this and apply Band-Aid. I have ordered a CT scan of the head. 11/27/20 13:[address] shows no signs of intracranial bleeding. Discussed with patient that she is likely suffering from a minor concussion. Recommend rest and Tylenol or ibuprofen as needed. We will discharge her home. Discharge instructions as documented. Departure - Departure Time of Disposition: 13:18 Disposition: Home, Self-Care 01 Condition: Good Clinical Impression: Head injury with loss of consciousness Forehead laceration Qualifiers: Encounter type: initial encounter Qualified Code(s): S01.81XA - Laceration without foreign body of other part of head, initial encounter - Discharge Information *PRESCRIPTION DRUG MONITORING PROGRAM REVIEWED*: No *COPY OF PRESCRIPTION DRUG MONITORING REPORT IN PATIENT IVONNE: No Instructions: Head Injury, Adult, Laceration Care, Adult Referrals: Lety Myers PA-C [Primary Care Provider] - Forms: ED Department Discharge Additional Instructions: You were seen in the emergency department today for evaluation after falling and hitting your head in the bathtub. You did think that you likely lost consciousness. A CT scan of your head was completed and was found to be normal. There is no bleeding within your brain. As we discussed, you are likely suffering from a mild concussion. Recommend right rest, avoid bright lights, and use Tylenol and ibuprofen as needed for discomfort. Clean your laceration on her forehead twice daily with soap and water. Watch for signs of infection. Return to ER as needed. Hoy lo vieron en el departamento de emergencias para cheyanne evaluacin despus de caerse y golpearse la akil en la baera. Pensaste que probablemente perdiste el conocimiento. Se complet cheyanne tomografa computarizada de woo akil y se encontr que era normal. No hay sangrado dentro de woo cerebro. [place] comentamos, es probable que est sufriendo cheyanne conmocin cerebral leve. Recomiende el desca nso adecuado, evite las luces brillantes y use Tylenol e ibuprofeno segn sea necesario para aliviar las molestias. Limpie woo laceracin en la frente dos veces al da con agua y jabn. Est atento a los signos de infeccin. Regrese a la amauri de emergencias si es necesario. Sepsis Event Note (ED) - Evaluation Sepsis Screening Result: No Definite Risk - Focused Exam Vital Signs: Vital Signs Temp Pulse Resp BP Pulse Ox 11/27/20 11:38 97.5 F 79 16 145/77 H 98
== END 2020-11-27 13:32 | disposition home or self-care (01) ==
LOC: JD.ED 11:27
DX: S06.9X1A Unspecified intracranial injury with loss of consciousness of 30 minutes or less, initial encounter (principal); S01.81XA Laceration without foreign body of other part of head, initial encounter; E11.9 Type 2 diabetes mellitus without complications; Z79.84 Long term (current) use of oral hypoglycemic drugs; E66.9 Obesity, unspecified; Z68.30 Body mass index [BMI] 30.0-30.9, adult; Z79.899 Other long term (current) drug therapy; W22.8XXA Striking against or struck by other objects, initial encounter
CPT/HCPCS: 70450; 70450-26; 99284; 99284-25

== ENCOUNTER 2023-02-03 09:16 | Emergency (ER) | payer SELFPAY ==
[2023-02-03 10:14] LABS: BASOPHILS ABSOLUTE AUTO 0.02 K/mm3 (0.01-0.08); BASOPHILS PERCENT AUTO 0.3 % (0.1-1.2); EOSINOPHILS PERCENT AUTO 1.5 (0.7-5.8); HEMATOCRIT 39.5 % (34.1-44.9); HEMOGLOBIN 12.7 gm/dl (11.2-15.7); IMMATURE GRAN ABSOLUTE AUTO 0.01 K/mm3 (0.00-0.10); IMMATURE GRAN PERCENT AUTO 0.1 % (<=1.0); LYMPHOCYTES ABSOLUTE AUTO 2.19 K/mm3 (1.18-3.74); LYMPHOCYTES PERCENT AUTO 31.9 % (19.3-51.7); MEAN CORPUSCULAR HEMOGLOBIN 29.6 pg (25.6-32.2); MEAN CORPUSCULAR HGB CONC 32.2 g/dl (32.2-35.5); MEAN CORPUSCULAR VOLUME 92.1 fl (79.4-94.8); MONOCYTES ABSOLUTE AUTO 0.65 K/mm3 (0.24-0.36); MONOCYTES PERCENT AUTO 9.5 % (4.7-12.5); NEUTROPHILS PERCENT AUTO 56.7 % (34.0-71.1); PLATELET COUNT,PLT 275 K/mm3 (182-369); RED BLOOD CELL COUNT 4.29 M/mm3 (3.98-5.22); WHITE BLOOD CELL COUNT,WBC 6.87 K/mm3 (3.98-10.04)
[2023-02-03 10:19] LABS: A/G RATIO 0.8 (1-2); ALBUMIN 3.3 g/dl (3.4-5.0); ANION GAP 11.1 (5-15); BILIRUBIN TOTAL 0.7 mg/dL (0.2-1.0); CALCIUM 8.7 mg/dL (8.5-10.1); CREATININE 0.8 mg/dL (0.55-1.02); EST CRCL DRUG DOSING (CG) 65.13 mL/min; POTASSIUM,K 4.1 mEq/L (3.5-5.1); PROTEIN TOTAL,TP 7.5 g/dl (6.4-8.2)
[2023-02-03] MEDS ORDERED: Sodium Chloride 0.9% 1,000 ML IV STA (11:12)
[2023-02-03] MEDS ORDERED: Ondansetron 4 MG/2 ML SDV IVPUSH ONE (11:12)
[2023-02-03] MEDS ORDERED: HYDROmorphone 0.5 MG/0.5 ML Syringe IVPUSH ONE (11:12)
[2023-02-03 11:14] LABS: APPEARANCE,URINE CLEAR (Clear); BILIRUBIN,URINE NEGATIVE (Negative); COLOR,URINE YELLOW (Yellow); GLUCOSE,URINE NEGATIVE (Negative); KETONES,URINE NEGATIVE (Negative); LEUKOCYTE ESTERASE,URINE NEGATIVE (Negative); NITRITE,URINE NEGATIVE (Negative); OCCULT BLOOD,URINE 2+ (Negative); PH,URINE 6.5 (5.0-8.0); PROTEIN,URINE NEGATIVE (Negative); UROBILINOGEN,URINE 0.2 (0.2-1.0)
[2023-02-03 11:31] LABS: BACTERIA,URINE FEW /hpf (FEW); MUCUS,URINE RARE /hpf (FEW); SQUAMOUS EPITHELIAL CELLS,UR 0-5 /hpf (0-5); WBC,URINE 0-5 /hpf (0-5)
[2023-02-03 13:39] VITALS: BP 129/74; PULSE 64
== END 2023-02-03 13:10 | disposition home or self-care (01) ==
LOC: JD.ED 09:16
DX: R10.84 Generalized abdominal pain (principal); R10.11 Right upper quadrant pain; E11.9 Type 2 diabetes mellitus without complications; E66.9 Obesity, unspecified; Z68.35 Body mass index [BMI] 35.0-35.9, adult; Z79.899 Other long term (current) drug therapy
CPT/HCPCS: 36415; 80053; 81001; 81025; 83690; 85025; 96361; 96374; 96375; 99284; J1170; J2405; J7030; 99283